=== PATIENT | male | born 1945 | race Caucasian/White ===

== ENCOUNTER → 2016-09-16 | Outpatient (CLI) | payer BC ==
[~2016-09-16] MED LIST: AMLO-110 PO; COEN150C PO; HOME1TAB18 PO; PRLSR20 PO; SLWMEC PO; ULT50X PO
[2016-09-16 12:50] LABS: HEMATOCRIT 45.4 % (42-52); MEAN CELL VOLUME 89.2 fL (80-100); MEAN CORPUSCULAR HEMOGLOBIN 30.5 pg (25-34); MEAN CORPUSCULAR HGB CONC 34.1 g/dl (32-36); MEAN PLATELET VOLUME 10.8 fL (7.4-10.4); PLATELET COUNT 194 K/uL (130-400); RED BLOOD COUNT 5.09 M/uL (4.7-6.1); WHITE BLOOD COUNT 5.33 K/uL (4.8-10.8)
[2016-09-16 12:56] LABS: BLOOD UREA NITROGEN 20 mg/dl (7-18); BUN/CREATININE RATIO 14.1 (10-20); CALCIUM 8.8 mg/dl (8.5-10.1); CARBON DIOXIDE 29 mmol/L (21-32); CHLORIDE 104 mmol/L (98-107); GLUCOSE 98 mg/dl (70-99); POTASSIUM 4.3 mmol/L (3.5-5.1); SODIUM 139 mmol/L (136-145)
[2016-09-16 12:59] LABS: CHOLESTEROL 258 mg/dl (0-200); CHOLESTEROL/HDL RATIO 5.9; HDL CHOLESTEROL 44 mg/dl; TRIGLYCERIDES 138 mg/dl (0-150); VERY LOW DENSITY LIPOPROT CALC 28 mg/dl
[2016-09-16 13:14] LABS: ESTIMATED AVERAGE GLUCOSE 126 mg/dl; HA1C FLAG Normal (Normal)
== END | disposition home or self-care (01) ==
LOC: C.LABSPEC 12:20
PROVIDERS: ATTEND Internal Medicine
DX: I10 Essential (primary) hypertension (principal); R73.9 Hyperglycemia, unspecified; E78.5 Hyperlipidemia, unspecified; D64.9 Anemia, unspecified

== ENCOUNTER 2016-11-05 10:53 | Inpatient (IN) | payer BC, OTHER ==
[2016-10-15 08:12] VITALS: BMI 33.0
--- NOTE | 2016-10-15 08:54 | PAT Medication Instructions ---
Service Date Oct 15, 2016. Current Home Medication List Amlodipine (Norvasc), 5 MG PO QAM Omeprazole (Prilosec), 40 MG PO QAM Medication Instructions For Your Scheduled Surgery - Take the following medications the morning of surgery with a sip of water: Amlodipine (Norvasc), 5 MG PO QAM Omeprazole (Prilosec), 40 MG PO QAM If you have any questions please call us at [phone] or [phone] ( [place]) or [phone]
--- NOTE | 2016-10-15 09:17 | DIAGNOSTIC IMAGING REPORT ---
CHEST 2 VIEWS ROUTINE CLINICAL HISTORY: PAT preoperative evaluation COMPARISON STUDY: 04/12/2013 FINDINGS: The bones soft tissues and hemidiaphragms are normal. The cardiomediastinal silhouette is normal. The lungs are clear. The pulmonary vasculature is normal. IMPRESSION: Negative chest. Electronically signed by: Sixto Zhang M.D. 10/15/2016 9:15 AM Dictated Date/Time: 10/15/2016 9:15 AM
[2016-10-15 10:06] LABS: BASO % 0.3 %; BASO ABS # 0.02 K/uL (0-0.2); COMPLETE YES; EOS % 1.9 %; HEMATOCRIT 47.5 % (42-52); IG% 0.5 %; LYMPH % 35.4 %; MEAN CELL VOLUME 88.5 fL (80-100); MEAN CORPUSCULAR HEMOGLOBIN 30.4 pg (25-34); MEAN CORPUSCULAR HGB CONC 34.3 g/dl (32-36); MEAN PLATELET VOLUME 10.6 fL (7.4-10.4); NEUT % 51.9 %; PLATELET COUNT 191 K/uL (130-400); RED BLOOD COUNT 5.37 M/uL (4.7-6.1)
[2016-10-15 10:08] LABS: URINE APPEARANCE CLEAR (CLEAR); URINE BILIRUBIN NEG (NEG); URINE COLOR YELLOW; URINE NITRITE NEG (NEG); URINE PH 6.5 (4.5-7.5); UROBILINOGEN NEG (NEG)
[2016-10-15 10:15] LABS: PROTHROMBIN TIME (PATIENT) 10.7 SECONDS (9.0-12.0)
[2016-10-15 10:24] LABS: MANUAL MICROSCOPIC REQUIRED? NO; REVIEW REQ? NO
--- NOTE | 2016-11-04 15:52 | HISTORY & PHYSICAL EXAMINATION ---
DATE OF ADMISSION: 11/05/2016 HISTORY AND PHYSICAL ADMISSION NOTE PREOPERATIVE DIAGNOSIS: Rotator cuff arthropathy of the left shoulder. HISTORY OF PRESENT ILLNESS: Joaquin is a very pleasant 71-year-old hand dominant male who has been having left shoulder pain for about a year. He does have a history of a left rotator cuff repair done by Dr. Tillman. About a year ago, he was working on his tractor and he went down over an 80 foot and back landed subsequently totalling his farm tractor. He remained in the character during the entire incident and since then he has been having increasing shoulder pain. 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 X-rays and clinical examination from the office do show signs of rotator cuff arthropathy of the left shoulder. After failing conservative treatment, he has elected to proceed with a reverse left shoulder arthroplasty. PAST MEDICAL HISTORY: Significant for arterial hypertension, treated for about 7 years; osteoarthritis and scarlet fever as a kid. PAST SURGICAL HISTORY: Significant for a left shoulder rotator cuff repair by Dr. Tillman in 2005 and appendectomy. In the past, a basal cell carcinoma removed from his right ear back in 2012; a left total hip arthroplasty in 2012 and a right knee wedge resection in 2008. ALLERGIES: INCLUDE HYDROCODONE, LISINOPRIL, AND OXYCODONE. SOCIAL HISTORY: He is with 2 sons. Denies any tobacco, alcohol or IV drug use. MEDICATIONS: Include Norvasc 5 mg daily, CoQ10 200 mg daily, and Prilosec 40 mg daily. REVIEW OF SYSTEMS: He complains of left shoulder pain and weakness. All other pertinent review of systems are negative. PHYSICAL EXAMINATION: GENERAL: He is awake, alert and oriented x3. He is in no apparent distress. He is very pleasant. HEENT: Pupils are equal, round and reactive to light. Extraocular motion intact. Oral mucosa is pink and moist. HEART: Regular rate per radial pulse. LUNGS: Lizzy symmetrically bilaterally with no audible breath sounds. ABDOMEN: Soft, nontender, nondistended. MUSCULOSKELETAL: On physical examination of the left shoulder, he has about 160 degrees of forward elevation and 140 degrees of abduction, but he has 3/5 muscle strength to full can testing and 4/5 with external rotation. Negative belly press test. He does have pain through range of motion. IMAGING Data: X-rays of the left shoulder do show superior migrated humeral head with articulation with the acromion. IMPRESSION: Cuff arthropathy of the left shoulder. PLAN: Will proceed with a Biomet comprehensive reverse left total shoulder arthroplasty. Postoperatively, he will be placed in an arm sling and kept overnight for postoperative medical evaluation.
[~2016-11-05] VITALS: Ht 170.2 cm; Wt 97.6 kg
[2016-11-05] VITALS (8 sets, daily range): BP systolic 113–138; BP diastolic 63–94; PULSE 69–82; TEMP 36.3–36.7; O2SAT 92–97; Ht 170.2 cm; Wt 97.6 kg
[~2016-11-05 10:53] MED LIST changes: +ACETAMINOPHEN 500 MG TAB PO SCH; +CEFAZOLIN 2000 MG/60 ML D5W 60 ML IV SCH; +FAMOTIDINE 20 MG TAB PO SCH; +GABAPENTIN 300 MG CAP PO SCH; +LACTATED RINGER'S 1000ML 1,000 ML IV SCH; +LACTATED RINGER'S 1000ML IV SCH; +ROPIVACAINE 0.5% 5 MG/ML 30 ML VIAL ONE; +ROPIVACAINE 5MG/ML 30 ML 150 MG, BUPIVACAINE/EPINEPHR 0.5% MPF 30 ML, KETOROLAC TROMETH... INFIL SCH; -SLWMEC PO; +TRANEXAMIC ACID INJ 1,000 MG in SODIUM CHLORIDE 0.9% 100ML 100 ML IV SCH; -ULT50X PO
--- NOTE | 2016-11-05 11:15 | History & Physical Bridge Note ---
H&P Re-Evaluation Bridge Note: I have examined the patient, reviewed the History & Physical and in the interval since the performance of the History & Physical I have noted the following changes of clinical significance: No changes noted
[2016-11-05] MEDS ORDERED: LIDOCAINE HCL 2% 2 ML VIAL (20MG/ML) ONE (11:44)
[2016-11-05] MEDS ORDERED: FENTANYL CITRATE INJ 50 MCG/1 ML 2 ML VIAL ONE ×2 (11:45→13:52)
[2016-11-05] MEDS ORDERED: MIDAZOLAM HCL 1 MG/ML 2ML VIAL ONE (11:45)
[2016-11-05] MEDS ORDERED: ROCURONIUM BROMIDE 10 MG/ML 5 ML VIAL ONE (11:45)
[2016-11-05] MEDS ORDERED: PROPOFOL IV EMULSION 10 MG/ML 20 ML VIAL IV ONE (11:45)
[2016-11-05] MEDS ORDERED: ORTHO JOINT ANESTHETIC ONE (11:53)
[2016-11-05] MEDS ORDERED: ATROPINE SULFATE 0.1 MG/ML 5ML SYR IV PRN (12:00)
[2016-11-05] MEDS ORDERED: ONDANSETRON INJ 2 MG/ML 2 ML VIAL IV PRN ×2 (12:00→14:15)
[2016-11-05] MEDS ORDERED: FENTANYL CITRATE INJ 50 MCG/1 ML 2 ML VIAL IV PRN (12:00)
[2016-11-05] MEDS ORDERED: EpHEDrine SULFATE INJ 50 MG/ML AMP IV PRN (12:00)
[2016-11-05] MEDS ORDERED: ONDANSETRON INJ 2 MG/ML 2 ML VIAL ONE (13:20)
[2016-11-05] MEDS ORDERED: EpHEDrine SULFATE 50MG/5ML SYR ONE (13:20)
[2016-11-05] MEDS ORDERED: LARYING-O-JET KIT (LTA) EXT ONE ×2 (13:20)
[2016-11-05] MEDS ORDERED: PHENYLEPHRINE 100MCG/ML 5ML SYR ONE (13:39)
[2016-11-05] MEDS ORDERED: BACITRACIN 50,000 UNITS IR ONE (14:10)
[2016-11-05] MEDS ORDERED: GLYCOPYRROLATE INJ 0.2 MG/ML VIAL ONE (14:11)
[2016-11-05] MEDS ORDERED: NEOSTIGMINE METHYLSULFATE 5 MG/5 ML SYR ONE (14:11)
[2016-11-05] MEDS ORDERED: METOCLOPRAMIDE HCL INJ 5 MG/ML 2 ML VIAL IV PRN (14:15)
[2016-11-05] MEDS ORDERED: MAGNESIUM HYDROXIDE SUSP 30 ML UDC PO PRN (14:15)
[2016-11-05] MEDS ORDERED: TRAMADOL HCL 50 MG TAB PO PRN (14:15)
[2016-11-05] MEDS ORDERED: SOD PHOSPHATE/SOD BIPHOSPHATE ENEMA 132 ML BTL PR PRN (14:15)
[2016-11-05] MEDS ORDERED: NALOXONE HCL 0.4 MG/1 ML VIAL/CARP IV PRN (14:15)
[2016-11-05] MEDS ORDERED: BISACODYL 10 MG SUPP PR PRN (14:15)
[2016-11-05] MEDS ORDERED: HYDROmorphone INJ 1 MG/ML SYR IV PRN (14:15)
[2016-11-05] MEDS ORDERED: HYDROmorphone HCL 2 MG TAB PO PRN (14:15)
--- NOTE | 2016-11-05 14:15 | [facility] Post Operative Brief Note ---
Immediate Operative Summary Operative Date November 05, 2016. Pre-Operative Diagnosis Rotator cuff arthropathy of the left shoulder Post-Operative Diagnosis Rotator cuff arthropathy of the left shoulder Procedure(s) Performed Left Reverse Total Shoulder Arthroplasty Surgeon Dr. Solis [employer] Manager Surgeon(s) Iker Starks Estimated Blood Loss 300 ML Findings as above Specimens Permanent Specimen A: Left Humeral Head Complication(s) None Disposition Recovery Room / PACU
--- NOTE | 2016-11-05 15:13 | DIAGNOSTIC IMAGING REPORT ---
LEFT SHOULDER 2 VIEWS CLINICAL HISTORY: Postoperative examination. FINDINGS: 2 portable views of the left shoulder are obtained. The skeletal structures are osteopenic. A left shoulder arthroplasty is in near anatomic alignment. No acute fracture is seen. There are expected postoperative changes overlying the left shoulder including subcutaneous gas, soft tissue swelling, and a surgical drain. IMPRESSION: Expected postoperative findings status post left shoulder arthroplasty. No fracture is seen. Electronically signed by: Alan Post M.D. 11/05/2016 3:11 PM Dictated Date/Time: 11/05/2016 2:59 PM
--- NOTE | 2016-11-05 15:41 | Anesthesiology Progress Note ---
Anesthesia Post Op Note Date & Time November 05, 2016 at 15:41 Vital Signs Pain Intensity: 0 Vital Signs Past 12 Hours Date Time Temp Pulse Resp B/P Pulse Ox O2 Delivery O2 Flow Rate FiO2 11/05/16 15:15 36.5 76 16 122/75 97 Nasal Cannula 3 11/05/16 15:00 75 16 132/78 97 Nasal Cannula 3 11/05/16 14:50 77 16 118/81 98 Nasal Cannula 3 11/05/16 14:40 76 16 121/79 98 Mask 10 11/05/16 14:31 36.8 80 16 124/80 96 Mask 10 11/05/16 11:15 36.7 71 18 138/94 96 Room Air Notes Mental Status: alert / awake / arousable, participated in evaluation Pt Amnestic to Procedure: Yes Nausea / Vomiting: adequately controlled Pain: adequately controlled Airway Patency, RR, SpO2: stable & adequate BP & HR: stable & adequate Hydration State: stable & adequate Anesthetic Complications: no major complications apparent
--- NOTE | 2016-11-05 15:42 | OPERATIVE REPORT ---
DATE OF OPERATION: 11/05/2016 PREOPERATIVE DIAGNOSIS: Rotator cuff arthropathy of the left shoulder. POSTOPERATIVE DIAGNOSIS: Same. PROCEDURE: Reverse left total shoulder arthroplasty. SURGEON: Dr. Dewayne Solis. ASSISTANT REFINERY OPERATOR: Iker Long PA-C; whose assistance was necessary for retraction and helping positioning the arm. ANESTHESIA: General with a left interscalene nerve block. COMPLICATIONS: None. CONDITION: Stable to PACU. INDICATIONS: Joaquin is a very pleasant 71-year-old male who is very active. He came to my office with chronic left shoulder pain and weakness. X-rays and clinical examination were diagnostic for rotator cuff arthropathy of the left shoulder. After failing extensive conservative treatment, he elected to undergo a reverse shoulder arthroplasty. DESCRIPTION OF PROCEDURE: On 11/05/2016, he arrived at [facility] for the above procedure. He was seen in the preoperative holding area and the operative extremity was identified and signed. He was given a preoperative antibiotic and left interscalene nerve block. He was taken back to the operating room, laid on the table in supine position and put under general anesthesia. He was then put into the beachchair position. Left shoulder was prepped and draped in sterile fashion. Time-out was done and patient and operative extremity was properly identified. A deltopectoral approach was used. Dissection was taken down through the fascia and the anterior shoulder was exposed. There was a tear of the entire supraspinatus, most of the infraspinatus and entire subscapularis. The long head of the biceps tendon was absent. The proximal humerus was easily dislocated out of the joint. A canal finding reamer was sent down to the center of the humeral canal. Sequential reaming up to a size 9 reamer was done. Off that reamer, a proximal humeral resection guide was placed and the proximal humerus was resected at 20 degrees of retroversion and 135 degrees of inclination. The head was removed and the glenoid was exposed. Time was spent doing a complete circumferential capsular and labral release. A guide was placed on the inferior aspect of the glenoid and a guide pin was placed in 10 degrees of inclination. The 25 mm mini base plate was then reamed and impacted into place. A single 45 mm central screw was placed and got excellent purchase. Superior and inferior peripheral locking screws were then placed. A 36 mm eccentric glenosphere was then impacted into place. The proximal humerus was exposed. Sequential broaching up to a size 9 broach was done. Off that broach, a standard humeral tray was used. The shoulder was reduced, brought through a full range of motion and felt to be stable. The shoulder was dislocated and the trials were removed and the final size 9 press fit stem was impacted into place. The standard humeral bearing was snapped into the humeral tray and the ring lock mechanism was engaged. The humeral tray was then placed on the humeral stem. The shoulder was reduced, brought through a full range of motion and felt to be stable. Surrounding soft tissues were then injected with 100 mL of an orthopedic pain control cocktail. The entire joint was then irrigated with 3 liters of normal saline solution with bacitracin. A drain was placed. Hemostasis was controlled. The skin was then closed with 2-0 Vicryl, 3-0 V-Loc suture and Prineo dressing. He was placed in a soft dressing and in a left arm sling. He was then extubated, transferred to [facility] and taken to the postanesthesia care unit in stable condition. He tolerated the procedure well. IMPLANTS USED: I used a Biomet comprehensive reverse left total shoulder arthroplasty system with a size 25 mm mini baseplate, a 36 mm eccentric standard glenosphere and a size 9 press fit humeral stem and a standard humeral tray and bearing. No cement was used during the case. I attest to the content of the Intraoperative Record and any orders documented therein. Any exceptio ns are noted below.
[2016-11-05] MEDS: D5W AND 1/2NSS + 20MEQ KCL 1,000 ML IV SCH (16:36)
[2016-11-05] MEDS: KETOROLAC TROMETHAMINE 15 MG/ML VIAL IV. SCH ×2 (17:54→23:08)
[2016-11-05] MEDS: CEFAZOLIN IV 2,000 MG in DEXTROSE 5% 50ML 50 ML IV SCH (19:33)
[2016-11-05] MEDS ORDERED: SENNA 8.6 MG TAB PO SCH (21:00)
[2016-11-05] MEDS: DOCUSATE SODIUM 100 MG CAP PO SCH (21:21)
[2016-11-05] MEDS: ACETAMINOPHEN IV 1,000 MG in EMPTY BAG 0 ML IV SCH (21:26)
[2016-11-06] MEDS: D5W AND 1/2NSS + 20MEQ KCL 1,000 ML IV SCH (02:22)
[2016-11-06] MEDS: CEFAZOLIN IV 2,000 MG in DEXTROSE 5% 50ML 50 ML IV SCH (03:16)
[2016-11-06 03:25] VITALS: BP 114/71; PULSE 62; TEMP 36.6; O2SAT 91
[2016-11-06] MEDS: ACETAMINOPHEN IV 1,000 MG in EMPTY BAG 0 ML IV SCH (05:26)
[2016-11-06] MEDS: KETOROLAC TROMETHAMINE 15 MG/ML VIAL IV. SCH (05:26)
[2016-11-06 06:29] LABS: HEMATOCRIT 37.7 % (42-52); MEAN CELL VOLUME 90.8 fL (80-100); MEAN CORPUSCULAR HEMOGLOBIN 30.4 pg (25-34); MEAN CORPUSCULAR HGB CONC 33.4 g/dl (32-36); MEAN PLATELET VOLUME 10.5 fL (7.4-10.4); PLATELET COUNT 153 K/uL (130-400); RED BLOOD COUNT 4.15 M/uL (4.7-6.1); WHITE BLOOD COUNT 8.48 K/uL (4.8-10.8)
[2016-11-06 06:59] LABS: BUN/CREATININE RATIO 9.5 (10-20); CALCIUM 8.1 mg/dl (8.5-10.1); CREATININE 1.4 mg/dl (0.60-1.40); POTASSIUM 4.3 mmol/L (3.5-5.1)
[2016-11-06 07:45] VITALS: BP 121/78; PULSE 62; TEMP 36.7; O2SAT 94
[2016-11-06] MEDS ORDERED: ULT50X PO (08:16)
--- NOTE | 2016-11-06 08:17 | Discharge Instructions ---
Discharge Instructions Date of Service November 06, 2016. Admission Reason for Admission: Left Shoulder Full Thickness Rtc Tear, Inflammatio Discharge Discharge Diagnosis / Problem: Left Reverse Total Shoulder Discharge Goals Goal(s): Decrease discomfort, Improve function Activity Recommendations Activity Limitations: as noted below Shower/Bathe: may shower/bathe in 3 days . Instructions / Follow-Up Instructions / Follow-Up Activity and Therapy Recommendations: * Wear your sling for 3 weeks, unless otherwise instructed. You may remove your sling to shower and to dress, but otherwise, you should be in your sling at all times, including while sleeping * The shoulder replacement is very stable and you can use your hand while in the sling * Physical Therapy should start about 3-5 days from your day of surgery. Therapy will last about 8-12 weeks * You were shown a series of exercises in the hospital. Do these exercises daily including the exercises you were shown in physical therapy. Medications: * Narcotic You will likely be sent home from the hospital with a prescription for the narcotic pain medication that worked best throughout your stay. * Other medications may be prescribed for specific circumstances. If you have any questions, please call the office at . * Resume previous home medications unless otherwise instructed Dressing Care: You will likely have a Prineo dressing covering your incision. This looks like a glued on clear mesh dressing. Do not remove this dressing until you follow- up in my office in 2-3 weeks. Its pretty hard to peel it off. You may leave the Prineo dressing uncovered or cover it if it is draining a little bit. No further dressing care is required Showering: You may shower 3 days from the day of surgery. Leave the Prineo dressing intact and let the soapy shower water run over it. Do not scrub or soak the dressing or the incision. Things To Watch For: * Drainage from the incision site that occurs more than one week after your surgery. * Increased redness at the incision site. * Fever above 102 degrees Fahrenheit. * Unusual chest pain or shortness of breath. * Call [facility] at with any of the above problems Follow-Up Visit: Follow-up with Dr. Solis 2-3 weeks after your day of surgery. An appointment was probably scheduled when you signed-up for surgery in the office. If you have any questions call Office Instructions: More detailed instructions as well as Frequently Asked Questions were provided in a folder by our office when you signed-up for surgery. Please review these instructions when you get home. If you have any further questions or concerns, please feel free to call the office at [phone] Current Hospital Diet Patient's current hospital diet: Regular Diet Discharge Diet Recommended Diet: Regular Diet Procedures Procedures Performed: Left Reverse Total Shoulder Arthroplasty Pending Studies Studies pending at discharge: no Laboratory Results Hemoglobin A1c Test 09/16/16 10:40 Range/Units Estimated Average Glucose 126 mg/dl Hemoglobin A1c 6.0 H 4.5-5.6 % Lipid Panel Test 09/16/16 10:40 Range/Units Triglycerides Level 138 0-150 mg/dl Cholesterol Level 258 H 0-200 mg/dl HDL Cholesterol 44 mg/dl LDL Cholesterol Direct 174 mg/dl Cholesterol/HDL Ratio 5.9 LDL Cholesterol, Calculated mg/dl Medical Emergencies . Who to Call and When: Medical Emergencies: If at any time you feel your situation is an emergency, please call 911 immediately. . Non-Emergent Contact Non-Emergency issues call your: Surgeon Call Non-Emergent contact if: wound has increased drainage, wound has increased redness . "Provider Documentation" section prepared by Dewayne Solis. . VTE Core Measure Inpt VTE Proph given/why not?: Treatment not indicated
[2016-11-06] MEDS: DOCUSATE SODIUM 100 MG CAP PO SCH (08:31)
--- NOTE | 2016-11-06 08:49 | PROGRESS NOTE ---
DATE: 11/06/2016 DATE: 11/06/2016. CHIEF COMPLAINT: Status post reverse left total shoulder arthroplasty postop day #1. PROGRESS: Joaquin was seen and examined at bedside today. Overall, he is doing well. He says he really has no pain in the left shoulder. He was able to get some sleep last night and has no complaints. PHYSICAL EXAMINATION: RIGHT SHOULDER: The dressing is clean and dry and the drain is to suction. His radial, median and ulnar nerves were checked and intact at his wrist. His axillary nerve was not checked yet. He is wearing his sling as instructed. LABORATORY DATA: He has an H\T\H of 12.6 and 37.7. His glucose is 156. His vital signs are stable on room air. He is voiding on his own. X-rays postoperatively of the left shoulder show the prosthesis to be in anatomic alignment without any evidence of fracture, dislocation or loosening. IMPRESSION: Status post reverse left shoulder arthroplasty postop day #1. PLAN: At this point, he is doing very well. He will be seen by physical therapy today for hand, wrist, elbow and pendulum exercises. The nursing staff can change the dressing and pull the drain and discharge him to home later this morning.
[2016-11-06 08:53] VITALS: BP 121/78; PULSE 62; TEMP 36.7; O2SAT 94
[2016-11-06] MEDS ORDERED: PANTOprazole SOD 40 MG TAB PO SCH (09:00)
[2016-11-06] MEDS ORDERED: MULTIVITAMIN TAB PO SCH (09:00)
[2016-11-06] MEDS ORDERED: AMLODIPINE BESYLATE 5 MG TAB PO SCH (09:00)
--- NOTE | 2016-11-06 09:13 | DISCHARGE SUMMARY ---
CHIEF COMPLAINT: Rotator cuff arthropathy of the left shoulder. PROCEDURE: Left reverse total shoulder arthroplasty on 11/05/[address] Dewayne Solis. DISCHARGE INSTRUCTIONS: 1. Tramadol 50 mg every 4 hours as needed for pain. 2. Norvasc 5 mg daily. 3. CoQ10 200 mg daily. 4. Prilosec 40 mg daily. 5. Left arm sling for 3 weeks. 6. Start physical therapy this week. 7. Follow up with Dr. Solis in 2 weeks. 8. Call the office of Dr. Solis with any questions or concerns. HOSPITAL COURSE: Joaquin is a pleasant 71-year-old male who presented to my office with chronic left shoulder pain. X-rays and clinical examination were diagnostic for rotator cuff arthropathy of the left shoulder. After failing years of conservative treatment, he elected to undergo reverse shoulder arthroplasty. On 11/05/2016, he arrived at [facility] and underwent a reverse left shoulder replacement without complications. He had a general anesthetic and a left interscalene nerve block. Postoperatively, he was discharged to general orthopedic floor. His hospital course was uneventful. On postop day #1, his H\T\H was stable at 12.6 and 37.5. His glucose was 156. He was not having much pain in the shoulder. He was able to participate with physical therapy and do hand, wrist and elbow exercises. The nursing staff pulled the drain and changed the dressing, and he was subsequently discharged to home on oral pain medications and the above instructions.
[2016-11-06 09:28] VITALS: O2SAT 94
[2016-11-19] MEDS ORDERED: SLWMEC PO (11:51)
[2017-04-21] MEDS ORDERED: COEN100C7 PO (15:47)
[2017-04-21] MEDS ORDERED: NTRGSL/4 UT (15:47)
[2017-04-21] MEDS ORDERED: ATOR-26 PO (15:47)
[2017-04-21] MEDS ORDERED: METO50TA7 PO (15:47)
[2017-04-21] MEDS ORDERED: DOXY100C76 PO (15:48)
[2017-04-28] MEDS ORDERED: ACET-1256 PO (15:27)
[2017-04-28] MEDS ORDERED: ASPI81TA28 PO (15:27)
== END 2016-11-06 10:10 | disposition home or self-care (01) | DRG 483 ==
LOC: ENRESERVTM → ENRESERVDT → C.ACU 10:53 → C.3E 12:15 → UNDOADMIN 16:03
PROVIDERS: ADMIT Orthopaedic Surgery Sports Medicine; ATTEND Orthopaedic Surgery
PROC: 0RRK00Z Replacement of Left Shoulder Joint with Reverse Ball and Socket Synthetic Substitute, Open Approach (ICD-10-PCS; principal; 2016-11-05 13:40)
DX: M12.812 Other specific arthropathies, not elsewhere classified, left shoulder (principal); M75.102 Unspecified rotator cuff tear or rupture of left shoulder, not specified as traumatic; I10 Essential (primary) hypertension; E66.9 Obesity, unspecified; Z68.33 Body mass index [BMI] 33.0-33.9, adult; Z87.891 Personal history of nicotine dependence; Z86.19 Personal history of other infectious and parasitic diseases; Z79.899 Other long term (current) drug therapy

== ENCOUNTER → 2016-11-10 | Day surgery (SDC) | payer BC, OTHER ==
[2016-10-28 10:58] VITALS: Ht 170.2 cm; Wt 97.7 kg
[~2016-11-10] VITALS: Ht 170.2 cm; Wt 97.7 kg
[~2016-11-10] MED LIST changes: +500ML BSS 0.3ML EPI 1:1000PF IRRIG ONE; +ACET-1256 PO; +ACETAMINOPHEN 325 MG TAB PO PRN; -ACETAMINOPHEN 500 MG TAB PO SCH; +AMVISC PLUS 0.8ML SYRINGE INT OCU ONE; +ASPI81TA28 PO; +ATOR-26 PO; +ATROPINE SULFATE 0.1 MG/ML 5ML SYR IV PRN; +BSS FLUSH ONE; -CEFAZOLIN 2000 MG/60 ML D5W 60 ML IV SCH; +COEN100C7 PO; +DOXY100C76 PO; +ENDOCOAT 0.85ML SYRINGE INT OCU ONE; +EpHEDrine SULFATE INJ 50 MG/ML AMP IV PRN; +EpINEphrine INJ 1MG/ML AMP 1 MG/ML AMP ONE; -FAMOTIDINE 20 MG TAB PO SCH; -GABAPENTIN 300 MG CAP PO SCH; -LACTATED RINGER'S 1000ML 1,000 ML IV SCH; +LACTATED RINGER'S 1000ML 500 ML IV SCH; -LACTATED RINGER'S 1000ML IV SCH; +LIDOCAINE 4% OP SOLN DROP CHARGE ONE; +LIDOCAINE 4% OP SOLN DROP CHARGE OPR SCH; +LIDOCAINE HCL 1% MPF 2 ML VIAL ONE; +METO50TA7 PO; +MIDAZOLAM HCL 1 MG/ML 2ML VIAL ONE; +MIX: 4ML BSS 1ML EPI 1:1000 PF TOP ONE; +MOXIFLOXACIN OPH SOLN PER DROP CHARGE ONE; +NTRGSL/4 UT; +POVIDONE-IODINE OP SOLN 30 ML BTL ONE; +PROPARACAINE 0.5% OP SOLN PER DROP CHARGE OPR SCH; -ROPIVACAINE 0.5% 5 MG/ML 30 ML VIAL ONE; -ROPIVACAINE 5MG/ML 30 ML 150 MG, BUPIVACAINE/EPINEPHR 0.5% MPF 30 ML, KETOROLAC TROMETH... INFIL SCH; +SLWMEC PO; +TOBRAMYCIN/DEXAMETHASONE OPH OINT PER APPLN CHARGE ONE; -TRANEXAMIC ACID INJ 1,000 MG in SODIUM CHLORIDE 0.9% 100ML 100 ML IV SCH; +ULT50X PO
[2016-11-10] MEDS: PHENYLEPHRINE HCL 2.5% OP SOLN PER DROP CHARGE OPR SCH ×3 (06:37→06:47)
[2016-11-10] MEDS: TROPICAMIDE 1% OP SOLN PER DROP CHARGE OPR SCH ×3 (06:38→06:48)
[2016-11-10] MEDS: CYCLOPENTOLATE HCL 1% OP SOLN PER DROP CHARGE OPR SCH ×3 (06:39→06:51)
[2016-11-10] MEDS: MOXIFLOXACIN OPH SOLN PER DROP CHARGE OPR SCH ×3 (06:40→06:52)
--- NOTE | 2016-11-10 06:43 | History & Physical Bridge - [place] ---
H&P Re-Evaluation Bridge Note: I have examined the patient, reviewed the History & Physical and in the interval since the performance of the History & Physical I have noted the following changes of clinical significance: No changes noted. Right eye cataract surgery.
--- NOTE | 2016-11-10 07:29 | [facility] Post Operative Brief Note ---
Immediate Operative Summary Operative Date November 10, 2016. Pre-Operative Diagnosis Right eye cataract Post-Operative Diagnosis Same as preop Procedure(s) Performed Right Cataract Phacoemulsification With Intraocular Lens Implant Surgeon Dr. Patiño Contract Administration Specialist Surgeon(s) None Estimated Blood Loss 0 mL Findings right cataract Specimens None Complication(s) None Disposition
--- NOTE | 2016-11-10 07:32 | [facility] Operative Report ---
Operative Report Date of Service November 10, 2016. Operative Report Phaco with monofocal IOL DATE OF OPERATION: 11/10/16 PREOPERATIVE DIAGNOSIS: Senile nuclear cataract, right eye POSTOPERATIVE DIAGNOSIS: Senile nuclear cataract, right eye PROCEDURE PERFORMED: Phacoemulsification with intraocular lens implantation, right eye SURGEON: Dr. Jan Patiño ANESTHESIA: Topical with 1% intracameral lidocaine and monitored anesthesia care COMPLICATIONS: None DESCRIPTION OF PROCEDURE: After positively identifying the patient both verbally and by wristband in the preoperative area, the right eye was marked as the operative eye. The patient was then brought back to the operating room by the anesthesia and nursing staff where they were given a drop of Lidocaine and betadine into the operative eye. They were then sterilely prepped and draped in the standard fashion typical for ophthalmic surgery. Steri-strips were placed along the upper eyelids to keep the lashes back, and a lid speculum was placed into the operative eye. At this point, a documented time out was performed with members of the ophthalmology, nursing, and anesthesia staffs all agreeing upon the correct patient, correct location for surgery, correct procedure, and correct type and power of intraocular lens to be implanted. The microscope was then swung into position. First, a paracentesis wound was made using a sideport blade. Then, in sequence, 1% preservative-free lidocaine followed by Endocoat viscoelastic was injected into the anterior chamber. Next , the main incision was made with a keratome blade in triplanar fashion. A Malyugin ring was inserted due to poor pupil dilation. A sharp cystotome was introduced into the eye and used to create a tear in the anterior capsule, which was directed into a continuous curvilinear capsulorrhexis using Utrata forceps. Hydrodissection was then performed with BSS on a flat-tip cannula. Next, the phacoemulsification handpiece was introduced into the eye and used to remove the nucleus in a [id number] fashion. This was done without complication and then the irrigation-aspiration handpiece was introduced into the eye and used to remove all remaining cortical and epinuclear material. Amvisc was then injected into the anterior chamber as well as into the capsular bag and using the lens injector system, an MX60 23.5 D lens, serial number [id number], and expiration date 06/2019 was injected into the capsular bag and rotated into the correct position. The Malyugin ring was removed, and in this process some iris tissue was very friable and tore nasally along the pupil margin. Fred scissors were used to create an opening in the superior bulbar conjunctiva due to fluid buildup because of pannus at the site of the paracentesis. Next, the irrigation-aspiration handpiece was used to remove all remaining Amvisc. BSS was used to hydrate the main wound, and then BSS was injected into the paracentesis site to reach physiologic pressure and then the main wound was checked and found to be watertight. The patient was given drops of Vigamox and Tobradex ointment into the operative eye, and then the surrounding area was cleaned and dried. A clear plastic shield was placed over the eye and the patient was then sat up and taken from the operating room by the anesthesia staff having tolerated the procedure well and suffering no complications. DISPOSITION: The patient was returned to the recovery room in stable condition. I attest to the content of the Intraoperative Record and any orders documented therein. Any exceptions are noted below.
--- NOTE | 2016-11-10 07:33 | Discharge Instructions-SurgCtr ---
Discharge Instructions Date of Service November 10, 2016. Visit Reason for Visit: Cataract Right Eye Discharge Discharge Diagnosis / Problem: right cataract Discharge Goals Goal(s): Decrease discomfort, Improve function Activity Recommendations Activity Limitations: as noted below Anesthesia . Post Anesthesia Instructions: If you have had General Anesthesia or IV Sedation: * Do not drive today. * Resume driving when surgeon permits. * Do not make important decisions or sign legal documents today. * Call surgeon for: 1. Temperature elevations greater than 101 degrees F. 2. Uncontrollable pain. 3. Excessive bleeding. 4. Persistent nausea and vomiting. 5. Medication intolerance (nausea, vomiting or rash). * For nausea and vomiting use only clear liquids such as: tea, soda, bouillon until nausea subsides, then gradually increase diet as tolerated. * If you have any concerns or questions, call your surgeon's office. If physician is unavailable and it is an emergency, call 911 or go to the nearest emergency room. . Instructions / Follow-Up Instructions / Follow-Up ACTIVITY RECOMMENDATIONS: * Light activities. * You may walk outside, read, watch television. * You may notice redness on the white part of the eye and some blurry vision - this is normal. MEDICATIONS: Resume previous medications unless instructed otherwise by your surgeon. Start all eye drops at 9:30 am today: * Eye drops (today): Prednisone - one drop in operative eye every 2 hours while awake Ofloxacin - one drop in operative eye every 2 hours while awake SPECIAL CARE INSTRUCTIONS: * Tape plastic shield over eye to sleep at night. Call your doctor at with any concerns or problems. FOLLOW UP VISIT: Follow-up with Dr Patiño at [place] office as scheduled. Diet Recommendations Home Diet: no limitations Procedures Procedures Performed: Right Cataract Phacoemulsification With Intraocular Lens Implant Pending Studies Studies pending at discharge: no Medical Emergencies . Who to Call and When: Medical Emergencies: If at any time you feel your situation is an emergency, please call 911 immediately. . Non-Emergent Contact Non-Emergency issues call your: Surgeon . . "Provider Documentation" section prepared by Jan Patiño. .
[2016-11-10 07:54] VITALS: BP 146/91; PULSE 87; O2SAT 96
--- NOTE | 2016-11-10 08:03 | Anesthesia Progress Nt - [facility] ---
Anesthesia Post Op Note Date & Time November 10, 2016 at 08:03 Vital Signs Pain Intensity: 0 Vital Signs Past 12 Hours Date Time Temp Pulse Resp B/P Pulse Ox O2 Delivery O2 Flow Rate FiO2 11/10/16 07:54 87 146/91 96 Room Air 11/10/16 07:33 37.3 86 16 144/87 95 Room Air 11/10/16 06:29 37 91 16 138/89 94 Room Air Notes Mental Status: alert / awake / arousable, participated in evaluation Pt Amnestic to Procedure: Yes Nausea / Vomiting: adequately controlled Pain: adequately controlled Airway Patency, RR, SpO2: stable & adequate BP & HR: stable & adequate Hydration State: stable & adequate Anesthetic Complications: no major complications apparent
--- NOTE | 2016-11-10 08:33 | Anesthesia Progress Nt - [facility] ---
Anesthesia Post Op Note Date & Time November 10, 2016 at 08:34 Vital Signs Pain Intensity: 0 Vital Signs Past 12 Hours Date Time Temp Pulse Resp B/P Pulse Ox O2 Delivery O2 Flow Rate FiO2 11/10/16 07:54 87 146/91 96 Room Air 11/10/16 07:33 37.3 86 16 144/87 95 Room Air 11/10/16 06:29 37 91 16 138/89 94 Room Air Notes Mental Status: alert / awake / arousable, participated in evaluation Pt Amnestic to Procedure: Yes Nausea / Vomiting: adequately controlled Pain: adequately controlled Airway Patency, RR, SpO2: stable & adequate BP & HR: stable & adequate Hydration State: stable & adequate Anesthetic Complications: no major complications apparent
== END | disposition home or self-care (01) ==
LOC: X.SURG 06:01
PROVIDERS: ATTEND Ophthalmology
DX: H25.11 Age-related nuclear cataract, right eye (principal); I10 Essential (primary) hypertension; K21.9 Gastro-esophageal reflux disease without esophagitis; Z88.5 Allergy status to narcotic agent; Z98.890 Other specified postprocedural states; Z96.649 Presence of unspecified artificial hip joint; Z96.659 Presence of unspecified artificial knee joint; Z85.828 Personal history of other malignant neoplasm of skin; Z90.89 Acquired absence of other organs; Z68.34 Body mass index [BMI] 34.0-34.9, adult

== ENCOUNTER → 2016-11-24 | Day surgery (SDC) | payer BC ==
[2016-11-19 11:54] VITALS: Ht 170.2 cm; Wt 97.7 kg
[~2016-11-24] VITALS: Ht 170.2 cm; Wt 97.7 kg
[~2016-11-24] MED LIST changes: -LIDOCAINE 4% OP SOLN DROP CHARGE ONE; +LIDOCAINE 4% OP SOLN DROP CHARGE OPL SCH; -LIDOCAINE 4% OP SOLN DROP CHARGE OPR SCH; +PROPARACAINE 0.5% OP SOLN PER DROP CHARGE OPL SCH; -PROPARACAINE 0.5% OP SOLN PER DROP CHARGE OPR SCH; -ULT50X PO
--- NOTE | 2016-11-24 06:35 | History & Physical Bridge - [facility] ---
H&P Re-Evaluation Bridge Note: I have examined the patient, reviewed the History & Physical and in the interval since the performance of the History & Physical I have noted the following changes of clinical significance: No changes noted. Left eye cataract surgery.
[2016-11-24] MEDS: PHENYLEPHRINE HCL 2.5% OP SOLN PER DROP CHARGE OPL SCH ×3 (06:43→06:53)
[2016-11-24] MEDS: TROPICAMIDE 1% OP SOLN PER DROP CHARGE OPL SCH ×3 (06:44→06:54)
[2016-11-24] MEDS: CYCLOPENTOLATE HCL 1% OP SOLN PER DROP CHARGE OPL SCH ×3 (06:45→06:55)
[2016-11-24] MEDS: MOXIFLOXACIN OPH SOLN PER DROP CHARGE OPL SCH ×3 (06:46→06:56)
[2016-11-24] MEDS: LIDOCAINE 4% OP SOLN DROP CHARGE ONE ×2 (06:57→07:01)
--- NOTE | 2016-11-24 07:32 | [facility] Post Operative Brief Note ---
Immediate Operative Summary Operative Date November 24, 2016. Pre-Operative Diagnosis Cataract Left Eye Post-Operative Diagnosis Same Procedure(s) Performed Left Cataract Phacoemulsification With Intraocular Lens implant Surgeon Dr. Patiño Strip Presser Surgeon(s) None Estimated Blood Loss 0 Findings left cataract Specimens None Complication(s) None Disposition
--- NOTE | 2016-11-24 07:33 | [facility] Operative Report ---
Operative Report Date of Service November 24, 2016. Operative Report Phaco with monofocal IOL DATE OF OPERATION: 11/24/16 PREOPERATIVE DIAGNOSIS: Senile nuclear cataract, left eye POSTOPERATIVE DIAGNOSIS: Senile nuclear cataract, left eye PROCEDURE PERFORMED: Phacoemulsification with intraocular lens implantation, left eye SURGEON: Dr. Jan Patiño ANESTHESIA: Topical with 1% intracameral lidocaine and monitored anesthesia care COMPLICATIONS: None DESCRIPTION OF PROCEDURE: After positively identifying the patient both verbally and by wristband in the preoperative area, the left eye was marked as the operative eye. The patient was then brought back to the operating room by the anesthesia and nursing staff where they were given a drop of Lidocaine and betadine into the operative eye. They were then sterilely prepped and draped in the standard fashion typical for ophthalmic surgery. Steri-strips were placed along the upper eyelids to keep the lashes back, and a lid speculum was placed into the operative eye. At this point, a documented time out was performed with members of the ophthalmology, nursing, and anesthesia staffs all agreeing upon the correct patient, correct location for surgery, correct procedure, and correct type and power of intraocular lens to be implanted. The microscope was then swung into position. First, a paracentesis wound was made using a sideport blade. Then, in sequence, 1% preservative-free lidocaine followed by Endocoat viscoelastic was injected into the anterior chamber. Next , the main incision was made with a keratome blade in triplanar fashion. A Malyugin ring was inserted due to poor dilation. A sharp cystotome was introduced into the eye and used to create a tear in the anterior capsule, which was directed into a continuous curvilinear capsulorrhexis using Utrata forceps. Hydrodissection was then performed with BSS on a flat-tip cannula. Next, the phacoemulsification handpiece was introduced into the eye and used to remove the nucleus in a [id number] fashion. This was done without complication and then the irrigation-aspiration handpiece was introduced into the eye and used to remove all remaining cortical and epinuclear material. Amvisc was then injected into the anterior chamber as well as into the capsular bag and using the lens injector system, an MX60 23.0 D lens, serial number [id number], and expiration date 07/2019 was injected into the capsular bag and rotated into the correct position. The Malyugin ring was removed. Next, the irrigation-aspiration handpiece was used to remove all remaining Amvisc. BSS was used to hydrate the main wound, and then BSS was injected into the paracentesis site to reach physiologic pressure and then the main wound was checked and found to be watertight. The patient was given drops of Vigamox and Tobradex ointment into the operative eye, and then the surrounding area was cleaned and dried. A clear plastic shield was placed over the eye and the patient was then sat up and taken from the operating room by the anesthesia staff having tolerated the procedure well and suffering no complications. DISPOSITION: The patient was returned to the recovery room in stable condition. I attest to the content of the Intraoperative Record and any orders documented therein. Any exceptions are noted below.
--- NOTE | 2016-11-24 07:34 | Discharge Instructions-SurgCtr ---
Discharge Instructions Date of Service November 24, 2016. Visit Reason for Visit: Left Cataract Discharge Discharge Diagnosis / Problem: left cataract Discharge Goals Goal(s): Decrease discomfort, Improve function Activity Recommendations Activity Limitations: as noted below Anesthesia . Post Anesthesia Instructions: If you have had General Anesthesia or IV Sedation: * Do not drive today. * Resume driving when surgeon permits. * Do not make important decisions or sign legal documents today. * Call surgeon for: 1. Temperature elevations greater than 101 degrees F. 2. Uncontrollable pain. 3. Excessive bleeding. 4. Persistent nausea and vomiting. 5. Medication intolerance (nausea, vomiting or rash). * For nausea and vomiting use only clear liquids such as: tea, soda, bouillon until nausea subsides, then gradually increase diet as tolerated. * If you have any concerns or questions, call your surgeon's office. If physician is unavailable and it is an emergency, call 911 or go to the nearest emergency room. . Instructions / Follow-Up Instructions / Follow-Up ACTIVITY RECOMMENDATIONS: * Light activities. * You may walk outside, read, watch television. * You may notice redness on the white part of the eye and some blurry vision - this is normal. MEDICATIONS: Resume previous medications unless instructed otherwise by your surgeon. Start all eye drops at 9:30 am today: * Eye drops (today): Prednisone - one drop in operative eye every 2 hours while awake Ofloxacin - one drop in operative eye every 2 hours while awake Ilevro - one drop in operative eye daily SPECIAL CARE INSTRUCTIONS: * Tape plastic shield over eye to sleep at night. Call your doctor at with any concerns or problems. FOLLOW UP VISIT: Follow-up with Dr Patiño at [place] office as scheduled. Diet Recommendations Home Diet: no limitations Procedures Procedures Performed: Left Cataract Phacoemulsification With Intraocular Lens implant Pending Studies Studies pending at discharge: no Medical Emergencies . Who to Call and When: Medical Emergencies: If at any time you feel your situation is an emergency, please call 911 immediately. . Non-Emergent Contact Non-Emergency issues call your: Surgeon . . "Provider Documentation" section prepared by Jan Patiño. .
[2016-11-24 07:36] VITALS: TEMP 36.7
[2016-11-24 07:57] VITALS: BP 139/86; PULSE 77; O2SAT 94
--- NOTE | 2016-11-24 08:13 | Anesthesia Progress Nt - [facility] ---
Anesthesia Post Op Note Date & Time November 24, 2016 at 08:12 Vital Signs Pain Intensity: 0 Vital Signs Past 12 Hours Date Time Temp Pulse Resp B/P Pulse Ox O2 Delivery O2 Flow Rate FiO2 11/24/16 07:57 77 16 139/86 94 Room Air 11/24/16 07:36 36.7 73 16 135/84 95 Room Air 11/24/16 06:29 36.7 81 16 143/89 94 Room Air Notes Mental Status: alert / awake / arousable, participated in evaluation Pt Amnestic to Procedure: Yes Nausea / Vomiting: adequately controlled Pain: adequately controlled Airway Patency, RR, SpO2: stable & adequate BP & HR: stable & adequate Hydration State: stable & adequate Anesthetic Complications: no major complications apparent
== END | disposition home or self-care (01) ==
LOC: X.SURG 06:03
PROVIDERS: ATTEND Ophthalmology
DX: H25.12 Age-related nuclear cataract, left eye (principal); E66.9 Obesity, unspecified; I10 Essential (primary) hypertension; M19.90 Unspecified osteoarthritis, unspecified site; F17.220 Nicotine dependence, chewing tobacco, uncomplicated; Z85.828 Personal history of other malignant neoplasm of skin; Z90.49 Acquired absence of other specified parts of digestive tract; Z96.649 Presence of unspecified artificial hip joint; Z96.659 Presence of unspecified artificial knee joint

== ENCOUNTER → 2017-02-10 | Outpatient (CLI) | payer BC ==
[~2017-02-10] MED LIST changes: -500ML BSS 0.3ML EPI 1:1000PF IRRIG ONE; -ACET-1256 PO; -ACETAMINOPHEN 325 MG TAB PO PRN; -AMVISC PLUS 0.8ML SYRINGE INT OCU ONE; -ASPI81TA28 PO; -ATOR-26 PO; -ATROPINE SULFATE 0.1 MG/ML 5ML SYR IV PRN; -BSS FLUSH ONE; -COEN100C7 PO; -DOXY100C76 PO; -ENDOCOAT 0.85ML SYRINGE INT OCU ONE; -EpHEDrine SULFATE INJ 50 MG/ML AMP IV PRN; -EpINEphrine INJ 1MG/ML AMP 1 MG/ML AMP ONE; -LACTATED RINGER'S 1000ML 500 ML IV SCH; -LIDOCAINE 4% OP SOLN DROP CHARGE OPL SCH; -LIDOCAINE HCL 1% MPF 2 ML VIAL ONE; -METO50TA7 PO; -MIDAZOLAM HCL 1 MG/ML 2ML VIAL ONE; -MIX: 4ML BSS 1ML EPI 1:1000 PF TOP ONE; -MOXIFLOXACIN OPH SOLN PER DROP CHARGE ONE; -NTRGSL/4 UT; -POVIDONE-IODINE OP SOLN 30 ML BTL ONE; -PROPARACAINE 0.5% OP SOLN PER DROP CHARGE OPL SCH; -TOBRAMYCIN/DEXAMETHASONE OPH OINT PER APPLN CHARGE ONE
[2017-02-10 13:06] LABS: ESTIMATED AVERAGE GLUCOSE 123 mg/dl; HA1C FLAG Normal (Normal)
[2017-02-10 13:07] LABS: ALT/SGPT 34 U/L (12-78); AST/SGOT 27 U/L (15-37); BLOOD UREA NITROGEN 18 mg/dl (7-18); BUN/CREATININE RATIO 15.2 (10-20); CALCIUM 8.9 mg/dl (8.5-10.1); CARBON DIOXIDE 26 mmol/L (21-32); CHLORIDE 104 mmol/L (98-107); CHOLESTEROL 241 mg/dl (0-200); GLUCOSE 116 mg/dl (70-99); POTASSIUM 4.2 mmol/L (3.5-5.1); SODIUM 138 mmol/L (136-145)
[2017-02-10 13:11] LABS: ALB/GLOB RATIO 0.9 (0.9-2); ALKALINE PHOSPHATASE 80 U/L (45-117); CHOLESTEROL/HDL RATIO 4.7; HDL CHOLESTEROL 51 mg/dl; TRIGLYCERIDES 124 mg/dl (0-150); VERY LOW DENSITY LIPOPROT CALC 25 mg/dl
== END | disposition home or self-care (01) ==
LOC: C.LABSPEC 12:21
PROVIDERS: ATTEND Internal Medicine
DX: I10 Essential (primary) hypertension (principal); E78.5 Hyperlipidemia, unspecified; R73.9 Hyperglycemia, unspecified

== ENCOUNTER 2017-02-16 09:18 | Inpatient (IN) | payer BC, OTHER ==
[~2017-02-16] VITALS: Ht 167.6 cm; Wt 93.6 kg
[2017-02-16] VITALS (9 sets, daily range): BP systolic 123–138; BP diastolic 79–86; PULSE 78–84; TEMP 36.6; O2SAT 91–96; Ht 167.6 cm; Wt 93.6 kg
[2017-02-16] MEDS ORDERED: ASPIRIN 324 MG CHEW PO STA (12:03)
[2017-02-16 12:25] LABS: HEMATOCRIT 44.8 % (42-52); MEAN CELL VOLUME 88.5 fL (80-100); MEAN PLATELET VOLUME 9.9 fL (7.4-10.4); PLATELET COUNT 232 K/uL (130-400); RED BLOOD COUNT 5.06 M/uL (4.7-6.1)
[2017-02-16 12:26] LABS: MEAN CORPUSCULAR HGB CONC 33.9 g/dl (32-36)
[2017-02-16 12:46] LABS: PROTHROMBIN TIME (PATIENT) 10.7 SECONDS (9.0-12.0)
[2017-02-16 12:59] LABS: BUN/CREATININE RATIO 12.3 (10-20); CALCIUM 9.4 mg/dl (8.5-10.1); CREATININE 1.2 mg/dl (0.60-1.40); POTASSIUM 4.7 mmol/L (3.5-5.1)
--- NOTE | 2017-02-16 13:20 | History and Physical ---
History & Physical Date of Service Feb 16, 2017. History & Physical ADMISSION DATE : 02/16/2017 CHIEF COMPLAINT : 71-year-old male admitted directly from cardiopulmonary lab after he had a positive stress echocardiogram. PRESENT ILLNESS : Patient was seen in the office on 02/10/2017 for his regularly scheduled physical examination. He was complaining of recurrent episodes of left sided chest discomfort associated with exertion. He was quite vague with his symptomatology. He stated that he was having chest pressure. Always associated with exertion. Denied any associated diaphoresis or lightheadedness. No shortness of breath or palpitation. He was scheduled for stress echocardiogram which was done today. His baseline echocardiogram showed evidence of hypokinesis. He was able to exercise for a short time. His test was thought to be positive and suspicious for possible LAD territory ischemia. Dr. Junaid Wilde called me after the stress test was done and I made arrangements for patient to be admitted. His recommendation was to proceed with cardiac catheterization. Otherwise his medical problems include arterial hypertension, hypercholesterolemia but has not tolerated any statins in the past. She also has hyperglycemia. But his hemoglobin A1c has remained in good range. PAST MEDICAL HISTORY : * Osteoarthritis. Long-standing. He has had prior steroid injections in his right knee. * Left reverse shoulder replacement for osteoarthritis. Done by Dr. Dewayne Solis on 11/05/2016 * Bilateral cataract surgery * In June 2016 he was hospitalized with lower GI bleed. It was thought to be diverticular in nature. * Appendectomy in the remote past * Basal cell carcinoma lesion removed from his right ear * In 2012 cancerous skin lesion removed from his back. He had postoperative complications with infection. * Arterial hypertension treated for approximately 8 years * Episode of rectal bleeding in 2007. His colonoscopy showed evidence of diverticulosis. * Episode of angioedema in 2012. No clear etiology * Right knee wedge resection in 2008 SOCIAL HISTORY : He is has 2 sons. Denies any smoking. He used to chew tobacco. But he stopped within the last year. Occasional wine. About 2 cups of coffee per day. 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 He has 18 at this time. FAMILY HISTORY : His mother in her 80s had an aneurysm. Prior to that she had coronary artery disease and had a bypass graft. His father age 82. Had Alzheimer' s dementia. He had one brother living and well. One son is treated for lymphoma. ALLERGIES : * Percocet * Lisinopril. It was stopped at the time he presented with his angioedema. It was not sure whether that that was the cause. CURRENT MEDICATIONS : * Amlodipine 5 mg daily * CoQ10 1 tablet daily * He takes a preparation called Demetrio Adkins REVIEW OF SYSTEMS : He is doing quite well. Other than the symptomatology related to his chest discomfort he denies any other problem. No headache no dizziness no lightheadedness. He is post bilateral cataract surgery. Denied any earaches or sorethroat or neck pain. Chest discomfort as noted above. No shortness of breath. Good appetite. No abdominal pain no nausea no vomiting. No problem with his bowel movements. No problem urinating. He is recovered very nicely from his left shoulder surgery. PHYSICAL EXAMINATION : General: He is well-developed in no distress. His weight is 93.63 kg. Height 167.6 cm. BMI 33.33 Vital signs blood pressure 123/84, pulse 78, respiration 18, temperature 36.6, oxygen saturation 94% on room air Skin is warm and dry. No rash HEENT he is post cataract surgery both sides. No mucosal abnormalities in his nose mouth or throat Neck is supple without adenopathy or thyromegaly. No JVD. Normal cardiac pulses. No carotid bruit Chest is normal. Heart regular heart sounds without any murmur rub or gallop. Lungs are clear. Normal breath sounds. Abdomen is soft nontender without organomegaly or masses Back no spinal tenderness Extremities no edema clubbing or cyanosis. Scars from prior surgeries. Good pulses. Neurological examination: He is alert and oriented without evidence of any deficit. LABORATORY TESTS : WBC count 6300, hemoglobin 15.2, hematocrit 44.8, platelet count 232,000. Prothrombin time 10.7. INR 1.0. PRP is pending ASSESSMENT : * Unstable angina pectoris * Arterial hypertension * Hypercholesterolemia * Hyperglycemia * Diverticulosis * History of left shoulder replacement * Osteoarthritis * History of angioedema PLAN : Patient was admitted to PCU with telemetry. Resuscitation level I. Laboratory tests were ordered. He will be kept nothing by mouth. I spoke with Dr. Junaid Wilde. There is a possibility that he may have a cardiac catheterization done this afternoon all depends on his creatinine level whether he needs to be hydrated and also on the availability of the cardiac track laborer. Patient was given 324 mg chewable aspirin. The plan at this time is to proceed with cardiac catheterization either this afternoon or tomorrow. Further decision as far as treatment will depend on the findings during his cardiac catheterization.
--- NOTE | 2017-02-16 13:54 | CARDIOLOGY CONSULTATION ---
DATE OF CONSULTATION: 02/16/2017 TIME: 1306 p.m. CONSULTING PHYSICIAN: Dr. Cooper. REASON FOR CONSULTATION: Abnormal stress test/unstable angina. HISTORY OF PRESENT ILLNESS: Mr. Ly is a pleasant 71-year-old gentleman with a history significant for hypertension, who was referred for an outpatient stress echo by Dr. Cooper due to abnormal ECG and chest pain. During today's stress test, he had no chest discomfort while on the treadmill, but did have some shortness of breath and leg fatigue. He overall demonstrated poor exercise tolerance and was noted to have significantly abnormal stress echo images. He also had abnormal rest images with a baseline wall motion abnormalities. Full report to follow after these images are formally reviewed. Upon questioning Mr. Ly, he states that he has had approximately 2 episodes of chest pain. One was in November and one was just 2-3 weeks ago. The pain occurred at rest and was described as a chest tightness across his entire chest and into his jaw. There was no shortness of breath or other accompanying symptoms. Symptoms resolved spontaneously within a few minutes. He denies exertional symptoms. 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 He states he can walk up a flight of stairs without exertional chest discomfort or shortness of breath. He denies syncope, near syncope, palpitations, orthopnea, PND or edema. He has had GI bleeding in the past, stating that he had GI bleed in June of 2016 and he underwent colonoscopy and EGD. He states there was some diverticulosis. He did not require a blood transfusion and has not had any further bleeding since then. He denies fevers, chills, abdominal pain, nausea, or vomiting. Currently, he is asymptomatic following his stress test. Dr. Cooper was notified of his stress echo findings and is asked for consultation. REVIEW OF SYSTEMS: As above and review of systems otherwise negative and unremarkable. PAST MEDICAL HISTORY: 1. Hypertension. 2. Dyslipidemia, but has not required medications. 3. Hyperglycemia, but no formal diagnosis of diabetes. 4. Cataract surgery. 5. Left shoulder replacement in November of 2016. HOME MEDICATIONS: Include amlodipine 5 mg daily. ALLERGIES: INCLUDE LISINOPRIL, WHICH CAUSED ANGIOEDEMA; OXYCODONE AND PERCOCET, WHICH CAUSE RASH; AND TRAMADOL. SOCIAL HISTORY: No smoking. Rare alcohol. No drugs. and lives with his . His accompanies him today. He has 2 sons. 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 FAMILY HISTORY: His younger brother had bowel surgery recently. No known premature CAD in first degree relatives. PHYSICAL EXAMINATION: VITAL SIGNS: Temperature 36.6 degrees, heart rate 78 beats per minute, respiratory rate 18, blood pressure 123/84 mmHg, and oxygen saturation is 94% on room air. GENERAL: No acute distress. He is alert and oriented. HEENT: Anicteric sclerae. NECK: No appreciable JVD. No bruits. Normal carotid upstrokes bilaterally. CARDIAC EXAMINATION: PMI was nonpalpable. There was no ventricular heave. Regular, normal S1 and S2. There were no audible murmurs, rubs or gallops. LUNGS: Clear to auscultation bilaterally without wheezes, rales or rhonchi. ABDOMEN: Soft, nontender, and nondistended, normoactive bowel sounds. No bruits noted. EXTREMITIES: 2+ radial pulses bilaterally. Dexter's test okay bilaterally. 2+ dorsalis pedis pulses bilaterally. Trace bilateral lower extremity edema. No cyanosis. No palpable cords. PSYCHIATRIC: Affect appears appropriate. Stress echo images personally reviewed as noted above. Full report to follow. Labs were ordered to be done stat. White blood cell count 6.3, hemoglobin 15.2, and platelets 232. Sodium 138, potassium 4.7, BUN 15, creatinine 1.2, and glucose 106. INR is 1. ECG is not yet available, but will be ordered at this time. ASSESSMENT AND PLAN: 1. Abnormal stress echo: Findings on his stress echo are concerning for high risk coronary artery disease. His LV systolic function did not improve and his LV cavity did not become smaller, but in some views, actually appears to become more dilated. He does have resting wall motion abnormalities as well. This is concerning for multivessel coronary artery disease. Given these findings, it was recommended that he undergo coronary angiography. Risks and benefits were discussed with him in detail. He was made aware that CT surgery is not available at this facility and has given informed verbal consent to undergo diagnostic coronary angiography and percutaneous coronary intervention, if appropriate, at this facility. He has been n.p.o. since last evening. Stat labs were ordered. The plan is to pursue cardiac catheterization today if available. He is currently asymptomatic. 2. Chest pain/angina: Although chest pain occurred at rest and appeared to be somewhat atypical, with his stress echo findings, it is concerning for angina. Coronary angiography is planned above. 3. Hypertension: Blood pressure is adequately controlled on amlodipine. Continue current regimen. 4. Coronary artery disease: He has presumed coronary artery disease based on resting wall motion abnormalities and abnormal stress echo findings. Recommend aspirin 81 mg daily and high intensity statin therapy if he truly is found to have coronary artery disease. He has been given 324 mg of aspirin by Dr. Cooper upon admission as he is currently in the PCU. 5. Disposition: Cardiology will continue to follow. The patient's care has been discussed with Dr. Cooper. Remain n.p.o. for upcoming procedure as noted above. Highly complex medical issues. Thank you for allowing me participate in the care of Mr. Ly. Sincerely, JAMES
--- NOTE | 2017-02-16 14:06 | Procedure Note ---
Pre-Mod Sedation Assessment General Date of Moderate Sedation: Feb 16, 2017. Vital Signs: Vital Signs Past 12 Hours Date Time Temp Pulse Resp B/P (MAP) Pulse Ox O2 Delivery O2 Flow Rate FiO2 02/16/17 12:48 36.6 78 18 123/84 94 Room Air 02/16/17 12:22 36.6 78 18 123/84 94 Room Air Review Cardiovascular: regular rate, rhythm Abdomen: soft Lungs: lungs clear Pre-Sedation Airway Assessment Oral Cavity: WNL Short Thick Neck: No Hx of Sleep Apnea: No Smoking Status: Never Smoker Procedure Planning Contraindications-for Mod Sed: None Yes Notes The planned sedation has been discussed with the patient and consent obtained. I have identified the patient, determined the appropriateness of sedation and have assessed the patient immediately prior to the procedure. All medicine(s) and interventions are by my order.
[2017-02-16] MEDS ORDERED: FENTANYL CITRATE INJ 50 MCG/1 ML 2 ML VIAL ONE (14:14)
[2017-02-16] MEDS ORDERED: HEPARIN SOD (PORCINE) 1000 UNIT/ML 10 ML VIAL ONE (14:14)
[2017-02-16] MEDS ORDERED: MIDAZOLAM HCL 1 MG/ML 2ML VIAL ONE (14:14)
[2017-02-16] MEDS ORDERED: NiCARDipine HCL INJ 2.5 MG/ML 10 ML AMP ONE (14:14)
[2017-02-16] MEDS ORDERED: NITROGLYCERIN/D5W 100MCG/ML 20ML SYR ONE (14:14)
--- NOTE | 2017-02-16 14:36 | EXERCISE STRESS ECHO ---
*NOTICE TO RECEIVING CONSTITUTION PARTY AGENCY This information is strictly Confidential and protected under [place] law. [place] law prohibits you from making any further disclosure of this information unless further disclosure is expressly permitted by the written consent of the person to whom it pertains or is authorized by law. A general authorization for the release of medical or other information is not sufficient for this purpose. Hospital accepts no responsibility if the information is made available to any other person, INCLUDING THE PATIENT. Interpretation Summary * Name: KARL HATCH Study Date: 02/16/2017 09:37 AM BP: 125/84 mmHg * Patient Location: [facility] HR: 69 * : 1945 (M/d/yyyy) Gender: Male Height: 67 in * Age: 71 yrs Ethnicity: [place] Weight: 206 lb * Ordering Physician: Nasir Jeter * Referring Physician: Nasir Jeter * Performed By: Ana Chacko RCS * * Reason For Study: ABN EKG / CHEST PAIN * BSA: 2.0 m2 * -- Conclusions -- * Stress Echo: * 1. Abnormal stress echo suggesting multivessel CAD. LV cavity size increase in LV systolic function decreased compared to baseline. No significant augmentation visualized with new areas of akinesis noted. * 2. Abnormal exercise ECG at 92% MPHR. * 3. Exercise induced dyspnea. No chest pain reported. * 4. Appropriate blood pressure response to exercise. * 5. No arrhythmia. * 6. Poor exercise tolerance. * 7. Dr. Cooper immediately notified of findings while patient remained in the stress lab area. * Echo: * 1. Mildly dilated left ventricle with moderately reduced systolic function. EF 35-40%. Akinesis involving the mid to distal septum, distal inferior wall, distal lateral wall, and apex. Otherwise, global hypokinesis at rest. Moderate concentric left ventricular hypertrophy. Type 1 diastolic dysfunction. * 2. Sclerotic aortic valve without significant stenosis. * 3. Mild, eccentric posteriorly directed mitral regurgitation. Procedure Details * ECHOEX, CPT #[id number] * ECHO COLOR FLOW, CPT #[id number] * ECHO DOPPLER, CPT #[id number] Left Ventricle * Mildly dilated left ventricle with moderately reduced systolic function. EF 35-40%. Akinesis involving the mid to distal septum, distal inferior wall, distal lateral wall, and apex. Otherwise, global hypokinesis at rest. Moderate concentric left ventricular hypertrophy. Type 1 diastolic dysfunction. * Following exercise, there is no significant augmentation of visualized cantu. Baseline akinetic segments remained akinetic. The mid septum, mid inferior, mid inferolateral, mid anteroseptal, distal anterior, and mid lateral wall segments became akinetic. Left ventricle became more dilated and LV systolic function appeared to mildly decrease following exercise. Right Ventricle * The right ventricle is normal in size and function. Atria * The left atrium is borderline dilated. * Right atrial size is normal. Mitral Valve * The mitral valve is grossly normal. * There is no mitral valve stenosis. * Mild, eccentric posteriorly directed mitral regurgitation. Tricuspid Valve * The tricuspid valve is not well visualized, but is grossly normal. * There is no tricuspid stenosis. * Significant tricuspid regurgitation is absent. Aortic Valve * The aortic valve is trileaflet. * Sclerotic aortic valve without significant stenosis. * Trace aortic regurgitation. Pulmonic Valve * The pulmonary valve is inadequately visualized, but the Doppler data is adequate for interpretation. * Trace pulmonic valvular regurgitation. Great Vessels * The aortic root is normal size. * Ascending aorta of normal dimension * Normal pulmonary venous flow pattern. Mildly dilated IVC. Pericardium * There is no pericardial effusion. Stress Parameters * Sinus rhythm 77 bpm. PVC. Possible anterior infarct. * 1-2 mm horizontal and downsloping ST depression in leads II, III, aVF and V6, noted in recovery. Abnormalities persisted beyond 7 minutes into recovery, but did improve. * The stress portion of this study was personally supervised by the undersigned interpreting physician. * Rest heart rate was '69' BPM. * Rest blood pressure was '125/84' * Maximum heart rate achieved was 136 bpm. * Maximum heart rate was 92 % of maximum age-predicted heart rate. * Maximum blood pressure was '156/74' * Total exercise time was '03:29' * Maximum exercise MET level achieved was '5.10' METS * Maximum treadmill speed was '2.50' miles per hour. * Maximum treadmill elevation was '12.00'% grade. * Exercise was terminated due to 'leg fatigue and dyspnea' * Normal blood pressure response to exercise. MMode 2D Measurements and Calculations IVSd 1.5 cm IVSs 1.5 cm LVIDd 5.6 cm LVIDs 4.3 cm LVPWd 1.4 cm LVPWs 1.5 cm IVS/LVPW 1.1 FS 23.5 % EDV(Teich) 155.8 ml ESV(Teich) 83.5 ml EF(Teich) 46.4 % EDV(cubed) 178.8 ml ESV(cubed) 80.0 ml EF(cubed) 55.3 % % IVS thick -2.67 % % LVPW thick 4.1 % LV mass(C)d 367.5 grams LV mass(C)dI 179.5 grams/m\S\2 LV mass(C)s 246.9 grams LV mass(C)sI 120.6 grams/m\S\2 SV(Teich) 72.3 ml SI(Teich) 35.3 ml/m\S\2 SV(cubed) 98.8 ml SI(cubed) 48.3 ml/m\S\2 Ao root diam 3.8 cm Ao root area 11.6 cm\S\2 ACS 2.2 cm LA dimension 3.9 cm asc Aorta Diam 3.3 cm LA/Ao 1.0 LVOT diam 2.0 cm LVOT area 3.3 cm\S\2 LVAd ap4 52.6 cm\S\2 LVLd ap4 9.7 cm EDV(MOD-sp4) 231.6 ml EDV(sp4-el) 241.0 ml LVAs ap4 41.1 cm\S\2 LVLs ap4 9.0 cm ESV(MOD-sp4) 155.1 ml ESV(sp4-el) 158.9 ml EF(MOD-sp4) 33.0 % EF(sp4-el) 34.1 % SV(MOD-sp4) 76.5 ml SI(MOD-sp4) 37.4 ml/m\S\2 SV(sp4-el) 82.1 ml SI(sp4-el) 40.1 ml/m\S\2 Doppler Measurements and Calculations MV E max mohinder 70.2 cm/sec MV A max mohinder 129.0 cm/sec MV E/A 0.54 MV P1/2t max mohinder 74.2 cm/sec MV P1/2t 51.0 msec MVA(P1/2t) 4.3 cm\S\2 MV dec slope 426.0 cm/sec\S\2 MV dec time 0.16 sec Ao V2 max 110.0 cm/sec Ao max PG 4.8 mmHg Ao max PG (full) 2.4 mmHg CORY(V,A) 2.3 cm\S\2 CORY(V,D) 2.3 cm\S\2 LV V1 max PG 2.4 mmHg LV V1 max 77.4 cm/sec MR max mohinder 577.8 cm/sec MR max PG 134.0 mmHg TV E max mohinder 54.7 cm/sec PA V2 max 81.2 cm/sec PA max PG 2.6 mmHg PI max mohinder 194.2 cm/sec PI max PG 15.1 mmHg PI dec slope 208.0 cm/sec\S\2 PI P1/2t 273.5 msec
[2017-02-16] MEDS ORDERED: SODIUM CHLORIDE 0.9% 1000ML 1,000 ML IV SCH (15:48)
--- NOTE | 2017-02-16 15:48 | Procedure Note ---
Post-Mod Sedation Assessment General Date of Moderate Sedation Feb 16, 2017. Vital Signs: Vital Signs Past 12 Hours Date Time Temp Pulse Resp B/P (MAP) Pulse Ox O2 Delivery O2 Flow Rate FiO2 02/16/17 15:25 82 16 145/95 (112) 96 Room Air 02/16/17 15:15 86 16 152/95 (114) 96 Room Air 02/16/17 12:48 36.6 78 18 123/84 94 Room Air 02/16/17 12:22 36.6 78 18 123/84 94 Room Air Review - Discharge Criteria Vital Signs Stable: Yes Alert/Oriented/Conversant: Yes Returned to Baseline Mental St: Yes Nausea Absent/Minimal: Yes Pain/Discomfort/Absent/Minimal: Yes Normal/Baseline Respirations: Yes Active Bleeding?: No
--- NOTE | 2017-02-16 16:07 | Cardiac Catheterization ---
Procedure Note Procedure Date Feb 16, 2017. Pre-Procedure Diagnosis Angina, Positive Stress Test AUC Score 9 Post-Procedure Diagnosis Severe CAD, Elevated Intracardiac Pressures Procedure(s) Performed Coronary Angiography, Left Heart Cath, Radial Artery Angiography Fisher[employer] Division Chief Dr. Wilde Operational Intelligence Officer(s) Rl Estimated Blood Loss < 20 ml Medication(s) Fentanyl, Heparin, Nicardipine, Versed, Lidocaine 1% Summary of Findings Coronary angiography: 1. Left main coronary artery: The LMCA does not have significant CAD angiographically. 2. Left anterior descending: The LAD wraps around the apex, Ostial LAD 100%, but fills via right to left collaterals. There is a large lateral distribution vessel, likely a diagonal with 2 lateral branches that come together near a trifurcation point with proximal 100% stenosis. This fills via [id number] collaterals. 3. Circumflex: The circumflex is a small to medium caliber vessel without significant CAD. 4. Right coronary artery: The RCA is large and dominant. Proximal RCA 50% followed by early mid RCA 98% with HAZEL 3 flow. Right to left collaterals. RCA PDA without significant CAD. 5. Ramus intermedius: Large ramus intermedius with lateral branch. No significant CAD. Left heart catheterization: 1. Left ventriculography was not performed. 2. No significant aortic stenosis. 3. Mildly elevated LVEDP; 18mmHg. Right radial angiography: 1. The introducer wire was unable to be fully advanced, but was able to be advanced to fully advance the sheath over the wire. A Glidewire was unable to be advanced to the elbow area and therefore angiography was performed. 2. Right radial angiography demonstrated a mid right radial stenosis of approximately 80-90%, distal to an acute bend with a moderate lesion, approximately 60% within the bend. A Glidewire was then able to be passed through this area, without difficulty and 5 Maori diagnostic catheters were able to easily pass, without known complication. Sedation start time 2:40 p.m. Sedation end time 2:55 p.m. Impression: 1. Severe multivessel CAD. 2. Mildly elevated LVEDP. 3. No significant aortic stenosis. 4. Severe right radial artery stenosis. Plan: 1. CT surgery referral for CABG evaluation. Dr. Brody, CT surgeon at [facility] [place] [facility], has accepted Mr. Ly in transfer. 2. High-intensity statin therapy. 3. Aspirin 81 mg daily. 4. Beta-jose raul therapy. Dr. Cooper was notified of findings and recommendations. He agrees with transfer. Images were personally reviewed with Mr. Ly and his at the bedside. Hemodynamics Rest Ao: 125/77 Final Ao: 139/85 LV: 135/7. LVEDP 18 mmHg Recommendations CABG Specimens None Radiation Exposure (mGy) 1615 mGy. Fluoro time 6.7 min. Contrast (mls) 55 ml Procedural Complication(s) None Disposition PCU ACC Data Cardiac Status Clinical evaluation leading to the procedure CAD Presntation: Positive Stress Test Anginal Classification: CCS IV Heart Failure: No Cardiogenic Shock w/in 24Hrs: No Cardiac Arrest w/in 24Hrs: No Imaging studies past 6 months: No Stress studies past 6 months: Yes Standard Exercise Stress Test: Yes - Positive, Risk/Extent of Ischemia (High) Stress Echocardiogram: Yes - Positive, Risk/Extent of Ischemia (High) Coronary Anatomy Dominant: Right Left Main (% Stenosis): Normal LAD (% Stenosis): Ostial (100%) D1 (% Stenosis): Proximal (100%) Circumflex (% Stenosis): Normal RCA (% Stenosis): Proximal (50%), Mid (98%) R PDA (% Stenosis): Normal Ramus (% Stenosis): Normal Left Ventricular Angiography EF (%): n/a Diagnostic Physician's Name: Junaid Wilde MD Status: Elective Closure Device Percutaneous Entry Location: Radial Closure Device: Radial Band Recommendations: CABG
--- NOTE | 2017-02-16 16:07 | Consultant Recommendations ---
Spanish Lecturer Recommendations Date of Service Feb 16, 2017. Spanish Lecturer Recommendations ACTIVITY RECOMMENDATIONS: Excess manipulation of the wrist should be avoided for the next 24-48 hours. * No lifting over 2 pounds (approximately a 1/2 gallon of milk) with the utilized arm for 24 hours. * No strenuous activity such as bowling or tennis for 3 days. * Keep the site of the procedure covered with a bandage for 24 hours. *You may shower the day after the procedure. Do not take a tub bath or submerge the puncture site in water for the next 3 days. *Do not operate any motorized equipment for 3 days. SPECIAL CARE INSTRUCTIONS: The site may be slightly bruised and sore following your procedure. Should any of the following occur, contact the Dr. who performed your procedure. 1. Redness/inflammation, swelling, chills, or fever, or colored drainage at procedure site within 3-7 days after your procedure. 2. Coldness, discoloration, ongoing numbness, severe pain, or swelling. Expect mild tingling of hand and tenderness at the puncture site for up to three days. If this persists beyond three days, or other symptoms develop, notify the Dr. who performed your procedure. BLEEDING: If the procedure site on your wrist begins to bleed, do not panic 1. Place 1 or 2 fingers firmly just slightly above the insertion site to stop the bleeding. You may be able to feel your pulse as you hold pressure. 2. Lift your finger after 5 minutes to see if the bleeding has stopped. 3. Once the bleeding has stopped, gently wipe the wrist area clean with a bandage. * If the bleeding from your wrist does not stop after 10 minutes, or if there is a large amount of bleeding or spurting, call 911 (do not drive yourself to the hospital). SKIN IRRITATION: * You may experience some redness and/or swelling in the area where radiation was administered. If any skin irritation occurs, please contact your family physician. FOLLOW UP VISIT: Keep any scheduled doctor appointments.
--- NOTE | 2017-02-16 16:59 | Progress Note ---
Progress Note Date of Service Feb 16, 2017. Progress Note Patient was admitted directly from the cardiopulmonary laboratory after he had abnormal stress echocardiogram. He had evidence of cardiomyopathy with decreased wall motion and ejection fraction around 35%. He had a cardiac catheterization done this afternoon by Dr. Junaid Wilde. Patient had multivessel severe coronary artery disease. Including the following: * Left main coronary artery did not have any significant disease. * His LAD wraps around the apex. He had ostial LAD 100% stenosis but fills via right to left collaterals. There is a large lateral distribution vessels were likely a diagonal with 2 lateral branches that come together near a trifurcation point with proximal 100% stenosis. This fills via left to left collaterals * The circumflex artery was a small to medium caliber vessel without significant stenosis. * The right coronary artery was large and dominant. There was a proximal RCA 50 % stenosis followed by early mid RCA 98% stenosis with HAZEL-3 flow. Right-to- left collaterals. RCA PDA without significant disease. * Large ramus intermedius with lateral branch. No significant coronary artery disease. In view of the finding on his cardiac catheterization the recommendation was to proceed with coronary artery bypass graft. Dr. Wilde already called to [facility] and spoke with Dr. Mazariegos. The patient was accepted for transfer. He will be transferred by ambulance with ACLS. Patient is on aspirin. It was started before his cardiac catheterization he had a chewable 324 mg dose and then placed on daily aspirin. Dr. Wilde already started him on atorvastatin 80 mg daily and also metoprolol tartrate 25 [address] day[address] Dr[address] Wilde spoke with the patient and his in detail and explained to them all the findings. I also met with the family and everybody is in agreement to transfer the patient to [facility] for further treatment.
[2017-02-16] MEDS ORDERED: ATORVASTATIN 40 MG TAB PO SCH (21:00)
[2017-02-16] MEDS ORDERED: METOPROLOL TARTRATE 25 MG TAB PO SCH (21:00)
[2017-02-17] MEDS ORDERED: ASPIRIN 81 MG ECTAB PO SCH (09:00)
--- NOTE | 2017-02-23 16:04 | Discharge Summary ---
Discharge Summary Date of Service Feb 23, 2017. Discharge Summary ADMISSION DATE : 02/16/2017 DISCHARGE DATE : 02/16/2017 DISCHARGE DIAGNOSES : * multivessel occlusive coronary artery disease * Unstable angina pectoris * arterial hypertension * Hypercholesterolemia CONSULTATION: * Dr. Junaid Wilde in cardiology PROCEDURE: * cardiac catheterization done by Dr. Wilde 71-year-old made admitted directly from the cardiopulmonary laboratory after he had a stress echocardiogram done. Patient presented to the office for his regularly scheduled visit. He was complaining of discomfort in his chest mostly the left side with the exertion. His symptomatology was clearly associated with activity. He was scheduled for a stress echocardiogram. It was done on the day of admission. It was markedly positive showing evidence of ischemic changes. He also had decreased left ventricular ejection fraction to 45%. He had significant wall motion abnormalities. The plan was to proceed with cardiac catheterization. PAST MEDICAL HISTORY, SOCIAL HISTORY, FAMILY HISTORY : NOTED ON THE ADMISSION HISTORY AND PHYSICAL ALLERGIES : * lisinopril * Hydrocodone * Tramadol MEDICATIONS ON ADMISSION : NOTED ON HOME MEDICATION LIST. PHYSICAL EXAMINATION AND ADMISSION LABORATORY TESTS : NOTED ON THE ADMISSION HISTORY AND PHYSICAL HOSPITAL COURSE : patient was admitted to PCU with telemetry. He was kept n.p.o. Cardiac catheterization was done on the same day of his admission. It was markedly abnormal. Showing multiple occlusive coronary artery disease in multiple vessels. The recommendation was to proceed with coronary artery bypass surgery. Dr. Wilde discussed the findings with the patient and his family. The decision was to proceed with transfer to [facility]. Dr. Wilde spoke with Dr. Mazariegos. Patient was accepted for transfer. Arrangements were made for transfer by ambulance. This was accomplished once a bed became available at [facility].
== END 2017-02-16 19:45 | disposition short-term general hospital (02) | DRG 287 ==
LOC: C.CPL 09:18 → C.2T 12:41
PROVIDERS: ADMIT Internal Medicine; ATTEND Internal Medicine
PROC: 4A023N7 Measurement of Cardiac Sampling and Pressure, Left Heart, Percutaneous Approach (ICD-10-PCS; principal; 2017-02-16 14:33)
PROC: B211YZZ Fluoroscopy of Multiple Coronary Arteries using Other Contrast (ICD-10-PCS; principal; 2017-02-16 14:33)
DX: I25.10 Atherosclerotic heart disease of native coronary artery without angina pectoris (principal); I20.0 Unstable angina; M17.11 Unilateral primary osteoarthritis, right knee; Z85.828 Personal history of other malignant neoplasm of skin; I10 Essential (primary) hypertension; Z87.891 Personal history of nicotine dependence; E78.00 Pure hypercholesterolemia, unspecified; R73.9 Hyperglycemia, unspecified; Z82.49 Family history of ischemic heart disease and other diseases of the circulatory system

== ENCOUNTER → 2017-04-25 | Outpatient (CLI) | payer BC ==
[~2017-04-25] MED LIST changes: +ACET-1256 PO; -AMLO-110 PO; +ASPI81TA28 PO; +ATOR-26 PO; +COEN100C7 PO; +DOXY100C76 PO; -HOME1TAB18 PO; +METO50TA7 PO; +NTRGSL/4 UT; -PRLSR20 PO; -SLWMEC PO
[2017-04-25 17:12] LABS: HEMATOCRIT 42.8 % (42-52); MEAN CELL VOLUME 87.5 fL (80-100); MEAN CORPUSCULAR HEMOGLOBIN 28.2 pg (25-34); MEAN CORPUSCULAR HGB CONC 32.2 g/dl (32-36); MEAN PLATELET VOLUME 10.7 fL (7.4-10.4); PLATELET COUNT 246 K/uL (130-400); RED BLOOD COUNT 4.89 M/uL (4.7-6.1); WHITE BLOOD COUNT 10.19 K/uL (4.8-10.8)
[2017-04-25 17:20] LABS: BLOOD UREA NITROGEN 21 mg/dl (7-18); BUN/CREATININE RATIO 18.3 (10-20); CALCIUM 9.4 mg/dl (8.5-10.1); CARBON DIOXIDE 27 mmol/L (21-32); CHLORIDE 104 mmol/L (98-107); CREATININE 1.14 mg/dl (0.60-1.40); GLUCOSE 103 mg/dl (70-99); POTASSIUM 4.7 mmol/L (3.5-5.1); SODIUM 138 mmol/L (136-145); URINE APPEARANCE CLEAR (CLEAR); URINE BILIRUBIN NEG (NEG); URINE COLOR YELLOW; URINE NITRITE NEG (NEG); URINE PH 5.5 (4.5-7.5); URINE SPECIFIC GRAVITY 1.017 (1.000-1.030); UROBILINOGEN NEG (NEG)
[2017-04-25 17:21] LABS: MANUAL MICROSCOPIC REQUIRED? NO; REVIEW REQ? NO
[2017-04-25 17:23] LABS: PARTIAL THROMBOPLASTIN RATIO 1.2; PROTHROMBIN TIME (PATIENT) 10.9 SECONDS (9.0-12.0)
[2017-04-25 17:27] LABS: CHOLESTEROL/HDL RATIO 2.4
== END | disposition home or self-care (01) ==
LOC: C.LABBC 14:04
PROVIDERS: ATTEND Orthopaedic Surgery
DX: M25.512 Pain in left shoulder (principal); E78.5 Hyperlipidemia, unspecified; I25.10 Atherosclerotic heart disease of native coronary artery without angina pectoris

== ENCOUNTER 2017-04-29 06:25 | Inpatient (IN) | payer BC, OTHER ==
[2017-04-28 14:55] VITALS: BMI 16.0
--- NOTE | 2017-04-28 18:40 | HISTORY & PHYSICAL EXAMINATION ---
DATE OF ADMISSION: 04/29/2017 HISTORY AND PHYSICAL ADMISSION NOTE CHIEF COMPLAINT: Loosening of the left shoulder prosthesis. HISTORY OF PRESENT ILLNESS: Joaquin is a pleasant 71-year-old male who underwent an uncomplicated reverse left shoulder arthroplasty in November of 2016. His postoperative course was uneventful. He regained Full range of motion and he is doing very well with his shoulder. A couple of days ago, he had a forced external rotation to his left shoulder and noticed significant pain and weakness. He was unable to raise his shoulder. He called the office and I had him come in right away for an x-ray. Radiographs demonstrated displacement of the glenosphere complement. He has elected to proceed with a revision shoulder arthroplasty. He understands the risks, benefits, alternatives to procedure and elected to proceed. MEDICATIONS: Include Tylenol 500 mg daily, aspirin 81 mg daily, Lipitor 80 mg at night, CoQ10 100 mg caplets twice a day, Toprol-XL 50 mg daily, Nitrostat as needed and Monodox 100 mg daily. PAST MEDICAL HISTORY: Significant for arterial hypertension, osteoarthritis; scarlet fever as a kid as well as unstable angina, which he was treated for about 2 months ago. PAST SURGICAL HISTORY: Significant for a left shoulder rotator cuff repair by Dr. Tillman in 2005, appendectomy, basal cell carcinoma removed from the right ear in 2012, left total hip arthroplasty in 2012 and a right knee wedge resection in 2008. ALLERGIES: HYDROCODONE, LISINOPRIL, OXYCODONE AND TRAMADOL. SOCIAL HISTORY: He is with 2 sons. Denies any tobacco, alcohol or IV drug use. REVIEW OF SYSTEMS: He complains of left shoulder pain and weakness. All other pertinent review of systems are negative. PHYSICAL EXAMINATION: GENERAL: He is awake, alert and oriented x3. He is in no apparent distress. He is very pleasant. HEENT: Pupils are equal, round and reactive to light. Extraocular motion intact. Oral mucosa is pink and moist. HEART: Regular rate per radial pulse. LUNGS: Lizzy symmetrically bilaterally with no audible breath sounds. ABDOMEN: Soft, nontender, nondistended. MUSCULOSKELETAL: On physical examination of the left shoulder, he has very limited range of motion of his shoulder. He can only forward elevate about 20 degrees. Passively, I can try to get him a little further, but there seems to be a mechanical stop. His radial, median and ulnar nerves were checked and intact at his wrist. His axillary nerve was intact bilateral sensation. I was unable to get a great exam of the axillary nerve. The incisions are all well healed. IMAGING: X-rays from the office show a displaced glenosphere component. The glenoid baseplate appears to be intact and the humeral stem appears to be intact as well. IMPRESSION: Loosening of a left reverse shoulder prosthesis. PLAN: We will do a revision reverse shoulder arthroplasty to include reimplantation of the glenosphere complement. Postoperatively, he will be kept overnight for postoperative medical management and likely discharged to home the following day. JAMES
[2017-04-29] VITALS (9 sets, daily range): BP systolic 114–156; BP diastolic 70–96; PULSE 67–74; TEMP 36.3–36.8; O2SAT 90–97; Ht 170.2 cm; Wt 88.6 kg
[~2017-04-29] VITALS: Ht 170.2 cm; Wt 88.6 kg
[~2017-04-29 06:25] MED LIST changes: +ACETAMINOPHEN 500 MG TAB PO SCH; +CEFAZOLIN 2000MG IV PUSH 10 ML IV SCH; -COEN150C PO; +LACTATED RINGER'S 1000ML 1,000 ML IV SCH; +LACTATED RINGER'S 1000ML IV SCH; +ROPIVACAINE 5MG/ML 30 ML 150 MG, BUPIVACAINE 0.5% MPF INJ 30 ML, EpINEphrine HCL INJ 0.... INFIL SCH
[2017-04-29] MEDS ORDERED: MIDAZOLAM HCL 1 MG/ML 2ML VIAL ONE (06:48)
[2017-04-29] MEDS ORDERED: PROPOFOL IV EMULSION 10 MG/ML 20 ML VIAL IV ONE (06:48)
[2017-04-29] MEDS ORDERED: ONDANSETRON INJ 2 MG/ML 2 ML VIAL ONE (06:48)
[2017-04-29] MEDS ORDERED: GLYCOPYRROLATE INJ 0.2 MG/ML VIAL ONE (06:48)
[2017-04-29] MEDS ORDERED: ROCURONIUM BROMIDE 10 MG/ML 5 ML VIAL IV ONE (06:48)
[2017-04-29] MEDS ORDERED: LIDOCAINE HCL 2% 2 ML VIAL (20MG/ML) ONE (06:48)
[2017-04-29] MEDS ORDERED: FENTANYL CITRATE INJ 50 MCG/1 ML 2 ML VIAL ONE ×2 (06:48→06:49)
[2017-04-29] MEDS ORDERED: NEOSTIGMINE METHYLSULFATE 5 MG/5 ML SYR ONE (06:48)
[2017-04-29] MEDS ORDERED: DEXAMETHASONE SOD INJ 4 MG/ML VIAL ONE ×2 (06:48→07:49)
[2017-04-29] MEDS: TRANEXAMIC ACID INJ 1,000 MG in SODIUM CHLORIDE 0.9% 100ML 100 ML IV SCH ×2 (07:24→08:11)
[2017-04-29] MEDS ORDERED: ASPIRIN 81 MG ECTAB PO ONE (07:32)
[2017-04-29] MEDS ORDERED: BUPIVACAINE 0.25% 30 ML VIAL ONE (07:48)
[2017-04-29] MEDS ORDERED: EpINEphrine INJ 1MG/ML AMP 1 MG/ML AMP ONE (07:49)
[2017-04-29] MEDS ORDERED: ORTHO JOINT ANESTHETIC ONE (07:54)
[2017-04-29] MEDS ORDERED: BACITRACIN 50000 UNIT VIAL ONE (07:54)
[2017-04-29] MEDS ORDERED: FENTANYL CITRATE INJ 50 MCG/1 ML 2 ML VIAL IV PRN (08:15)
[2017-04-29] MEDS ORDERED: ONDANSETRON INJ 2 MG/ML 2 ML VIAL IV PRN ×2 (08:15→10:00)
[2017-04-29] MEDS ORDERED: PROMETHAZINE HCL INJ 6.25 MG in SODIUM CHLORIDE 0.9% 50ML 50 ML IV PRN (08:15)
[2017-04-29] MEDS ORDERED: EpHEDrine SULFATE INJ 50 MG/ML AMP IV PRN (08:15)
[2017-04-29] MEDS ORDERED: ATROPINE SULFATE 0.1 MG/ML 5ML SYR IV PRN (08:15)
[2017-04-29] MEDS ORDERED: PHENYLEPHRINE 100MCG/ML 5ML SYR ONE (09:53)
[2017-04-29] MEDS ORDERED: PHENYLEPHRINE HCL INJ 10 MG/ML VIAL ONE (09:53)
[2017-04-29] MEDS ORDERED: BISACODYL 10 MG SUPP PR PRN (10:00)
[2017-04-29] MEDS ORDERED: SOD PHOSPHATE/SOD BIPHOSPHATE ENEMA 132 ML BTL PR PRN (10:00)
[2017-04-29] MEDS ORDERED: MoRPHine SULFATE 2 MG/ML CARP IV PRN (10:00)
[2017-04-29] MEDS ORDERED: MAGNESIUM HYDROXIDE SUSP 30 ML UDC PO PRN (10:00)
[2017-04-29] MEDS ORDERED: NITROGLYCERIN 0.4 MG SL PER TAB CHARGE UT SCH (10:00)
[2017-04-29] MEDS ORDERED: METOCLOPRAMIDE HCL INJ 5 MG/ML 2 ML VIAL IV PRN (10:00)
[2017-04-29] MEDS ORDERED: NALOXONE HCL 0.4 MG/1 ML VIAL/CARP IV PRN (10:00)
--- NOTE | 2017-04-29 10:00 | [facility] Post Operative Brief Note ---
Immediate Operative Summary Operative Date Apr 29, 2017. Pre-Operative Diagnosis Loosening of left reverse shoulder prothesis Post-Operative Diagnosis Loosening of left reverse shoulder prothesis Procedure(s) Performed Left revision (one component), reverse total shoulder arthroplasty Surgeon Dr. Solis Irrigation Tax Assessor Collector Surgeon(s) ROSEANN Ladd Estimated Blood Loss 100 cc Findings as above Specimens A) Left shoulder removed hardware Complication(s) None Disposition Recovery Room / PACU
[2017-04-29] MEDS ORDERED: ESMOLOL HCL 10 MG/ML 10 ML VIAL ONE (10:05)
--- NOTE | 2017-04-29 10:52 | DIAGNOSTIC IMAGING REPORT ---
L SHOULDER MIN 2 VIEWS ROUTINE HISTORY: 71 years-old Male Post shoulder surgery status post left shoulder surgery. Degenerative joint disease COMPARISON: Left shoulder radiographs 11/05/2016 and 10/11/2016 TECHNIQUE: 3 views of the left shoulder FINDINGS: Reverse left shoulder arthroplasty noted with surgical drain and skin kemi in place. Expected deep tissue swelling and air about the left shoulder. No evidence of malalignment. 4 mm bone fragment is noted inferior to the right glenoid which may reflect loose body, small fracture fragment or fragmented osteophyte. Moderate degenerative changes of the AC joint. 4 mm corticated bone fragment lateral to the acromium suggests fragmented osteophyte. Prior median sternotomy. Left basilar opacity suggests effusion with consolidation. IMPRESSION: 1. Reverse left shoulder arthroplasty in satisfactory alignment. 2. 4 mm bone fragment inferior to the glenoid may reflect loose body, small fracture fragment or fragmented osteophyte. The above report was generated using voice recognition software. It may contain grammatical, syntax or spelling errors. Electronically signed by: Koby Padilla M.D. 04/29/2017 10:51 AM Dictated Date/Time: 04/29/2017 10:46 AM
--- NOTE | 2017-04-29 11:08 | Anesthesiology Progress Note ---
Anesthesia Post Op Note Date & Time Apr 29, 2017 at 11:07 Vital Signs Pain Intensity: 0 Vital Signs Past 12 Hours Date Time Temp Pulse Resp B/P (MAP) Pulse Ox O2 Delivery O2 Flow Rate FiO2 04/29/17 11:02 36.6 04/29/17 10:57 68 22 95 04/29/17 10:57 69 22 04/29/17 10:56 126/78 04/29/17 10:52 71 14 04/29/17 10:52 71 14 96 04/29/17 10:51 127/77 04/29/17 10:47 72 20 04/29/17 10:47 72 20 97 04/29/17 10:46 127/81 04/29/17 10:44 71 19 96 04/29/17 10:44 70 19 04/29/17 10:41 124/84 04/29/17 10:39 72 15 04/29/17 10:39 72 15 99 04/29/17 10:36 127/87 04/29/17 10:34 72 17 99 04/29/17 10:34 72 17 04/29/17 10:33 71 22 04/29/17 10:33 70 22 100 04/29/17 10:31 130/85 04/29/17 10:28 70 17 100 04/29/17 10:28 70 17 04/29/17 10:26 118/85 04/29/17 10:23 72 16 04/29/17 10:23 72 16 99 04/29/17 10:21 127/82 04/29/17 10:19 166/80 04/29/17 10:18 36.2 84 13 166/80 100 Oxymask 04/29/17 10:18 72 11 04/29/17 10:18 84 11 98 04/29/17 06:51 36.5 74 18 124/96 96 Room Air Notes Mental Status: alert / awake / arousable, participated in evaluation Pt Amnestic to Procedure: Yes Nausea / Vomiting: adequately controlled Pain: adequately controlled Airway Patency, RR, SpO2: stable & adequate BP & HR: stable & adequate Hydration State: stable & adequate Anesthetic Complications: no major complications apparent Block working well in pacu
[2017-04-29] MEDS: KETOROLAC TROMETHAMINE 15 MG/ML VIAL IV. SCH ×2 (12:07→18:25)
[2017-04-29] MEDS: POTASSIUM CHLORIDE INJ 10 MEQ in SODIUM CHLORIDE 0.9% 1000ML 1,000 ML IV SCH ×2 (12:26→21:51)
[2017-04-29] MEDS: ACETAMINOPHEN IV 1,000 MG in EMPTY BAG 0 ML IV SCH ×2 (13:24→21:31)
[2017-04-29] MEDS: CEFAZOLIN IV 2,000 MG in SYRINGE 0 ML IV SCH (17:03)
[2017-04-29] MEDS ORDERED: ATORVASTATIN 40 MG TAB PO SCH (21:00)
[2017-04-29] MEDS ORDERED: SENNA 8.6 MG TAB PO SCH (21:00)
[2017-04-29] MEDS: DOCUSATE SODIUM 100 MG CAP PO SCH (21:30)
[2017-04-30] MEDS: KETOROLAC TROMETHAMINE 15 MG/ML VIAL IV. SCH ×2 (00:22→06:14)
[2017-04-30] MEDS: CEFAZOLIN IV 2,000 MG in SYRINGE 0 ML IV SCH (00:23)
[2017-04-30 03:17] VITALS: BP 105/65; PULSE 69; TEMP 36.3; O2SAT 92
[2017-04-30 06:04] LABS: HEMATOCRIT 34.1 % (42-52); MEAN CORPUSCULAR HEMOGLOBIN 28.1 pg (25-34); MEAN CORPUSCULAR HGB CONC 32.3 g/dl (32-36); MEAN PLATELET VOLUME 10.1 fL (7.4-10.4); PLATELET COUNT 207 K/uL (130-400); RED BLOOD COUNT 3.92 M/uL (4.7-6.1); WHITE BLOOD COUNT 10.32 K/uL (4.8-10.8)
[2017-04-30] MEDS: ACETAMINOPHEN IV 1,000 MG in EMPTY BAG 0 ML IV SCH (06:13)
[2017-04-30 06:36] LABS: BUN/CREATININE RATIO 20.2 (10-20); CALCIUM 8.2 mg/dl (8.5-10.1); CREATININE 1.12 mg/dl (0.60-1.40); POTASSIUM 4.7 mmol/L (3.5-5.1)
[2017-04-30 07:29] VITALS: BP 168/95; PULSE 58; TEMP 36.5; O2SAT 96
--- NOTE | 2017-04-30 07:31 | Discharge Instructions ---
Discharge Instructions Date of Service Apr 30, 2017. Admission Reason for Admission: Left Shoulder Prosthetic Joint Loosening Discharge Discharge Diagnosis / Problem: Left Revision Reverse Shoulder Discharge Goals Goal(s): Decrease discomfort, Improve function Activity Recommendations Activity Limitations: as noted below . Instructions / Follow-Up Instructions / Follow-Up Activity and Therapy Recommendations: * Wear your sling for 3 weeks, unless otherwise instructed. You may remove your sling to shower and to dress, but otherwise, you should be in your sling at all times, including while sleeping * The shoulder replacement is very stable and you can use your hand while in the sling * Physical Therapy should start about 3-5 days from your day of surgery. Therapy will last about 8-12 weeks * You were shown a series of exercises in the hospital. Do these exercises daily including the exercises you were shown in physical therapy. Medications: * Narcotic You will likely be sent home from the hospital with a prescription for the narcotic pain medication that worked best throughout your stay. * Other medications may be prescribed for specific circumstances. If you have any questions, please call the office at . * Resume previous home medications unless otherwise instructed Showering: You may shower 5 days from the day of surgery. Let the soapy shower water run over the kemi. Do not scrub or soak the incision. Things To Watch For: * Drainage from the incision site that occurs more than one week after your surgery. * Increased redness at the incision site. * Fever above 102 degrees Fahrenheit. * Unusual chest pain or shortness of breath. * Call [facility] at with any of the above problems Follow-Up Visit: Follow-up with Dr. Solis 2-3 weeks after your day of surgery. An appointment was probably scheduled when you signed-up for surgery in the office. If you have any questions call Office Instructions: More detailed instructions as well as Frequently Asked Questions were provided in a folder by our office when you signed-up for surgery. Please review these instructions when you get home. If you have any further questions or concerns, please feel free to call the office at [phone] Current Hospital Diet Patient's current hospital diet: Regular Diet Discharge Diet Recommended Diet: Regular Diet Procedures Procedures Performed: Left revision (one component), reverse total shoulder arthroplasty Pending Studies Studies pending at discharge: no Laboratory Results Hemoglobin A1c Test 02/10/17 09:30 Range/Units Estimated Average Glucose 123 mg/dl Hemoglobin A1c 5.9 H 4.5-5.6 % Lipid Panel Test 04/25/17 14:10 Range/Units Triglycerides Level 72 0-150 mg/dl Cholesterol Level 110 0-200 mg/dl HDL Cholesterol 46 mg/dl Cholesterol/HDL Ratio 2.4 LDL Cholesterol, Calculated 50 mg/dl Medical Emergencies . Who to Call and When: Medical Emergencies: If at any time you feel your situation is an emergency, please call 911 immediately. . Non-Emergent Contact Non-Emergency issues call your: Surgeon Call Non-Emergent contact if: wound has increased drainage, wound has increased redness . "Provider Documentation" section prepared by Dewayne Solis. . VTE Core Measure Inpt VTE Proph given/why not?: Treatment not indicated
[2017-04-30] MEDS: POTASSIUM CHLORIDE INJ 10 MEQ in SODIUM CHLORIDE 0.9% 1000ML 1,000 ML IV SCH (07:37)
--- NOTE | 2017-04-30 07:53 | OPERATIVE REPORT ---
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 POSTOPERATIVE DIAGNOSIS: Same. PROCEDURE: Left shoulder revision reverse shoulder arthroplasty with poly exchange and reimplantation of the glenosphere. SURGEON: Dr. Dewayne Solis. DROP HAMMER MECHANIC: Stas Long PA-C, whose assistance was necessary for positioning of the arm and helping with instrumentation. ANESTHESIA: General with a left interscalene nerve block. COMPLICATIONS: None. CONDITION: Stable to PACU. INDICATIONS: Joaquin is a pleasant 71-year-old male who is 6 months status post reverse left shoulder arthroplasty. His initial postoperative course was uncomplicated. He did well and regained his range of motion. He was having no pain. Then, he did forced external rotation motion with his left shoulder and he had significant pain and weakness. He called my office. I brought him in immediately for an x-ray. X-ray showed displacement of the glenosphere. He elected to undergo revision reverse shoulder arthroplasty. DESCRIPTION OF PROCEDURE: On 04/29/2017, he arrived at [facility] for the above procedure. He was seen in the preoperative holding area and the operative extremity was identified and signed. He was given a preoperative antibiotic and a left interscalene nerve block. He was taken back to the operating room, laid on the table in supine position and put under general anesthesia. He was then put into the beachchair position. The left shoulder was prepped and draped in sterile fashion. Time-out was done and the patient and operative extremity was properly identified. The deltopectoral approach was opened up once again. Dissection was taken down through the fascia and the deltoid was retracted laterally and the conjoined tendon medially. The subscapularis was tenotomized off the lesser tuberosity with a centimeter of cuff tissue remaining. The glenosphere was easily removed from the joint. I then removed the humeral tray from the humeral head to gain better exposure of the glenoid baseplate. Once I had the baseplate exposed, it was examined extensively. I used a special depth device to make sure the central screw was seated all the way. The device showed that the central screw was not fully seated. A screwdriver was used and an attempt was made to advance the screw further; however, the screw was very tight and had excellent fixation. I could not advance any further. The screw was then backed out. The threads were cleaned and the screw was advanced once again. Once I readvanced the screw, I was able to get an extra fountain pen turner of the screw and seat it fully. The depth gauge device was used again and it confirmed that the screw was fully seated. I believe this to be the reason why I never got a cold weld on the Mabry taper implant. I examined the glenosphere extensively and it appeared to be intact. There did not appear to be any damage. So, I decided to reimplant it. I was able to get an excellent impaction fit and time was spent to ensure that it was fully seated. The proximal humerus was exposed. I looked at the humeral tray and bearing it. It seemed like that the poly had been roughened up through this process. I decided to use a new polyethylene insert. The ring lock mechanism was opened. The new polyethylene insert was added and I saved the humeral tray. The humeral tray was impacted onto the humeral stem. The shoulder was reduced, brought through a full range of motion and felt to be stable. The humeral stem was examined extensively and it was stable and not loose. The surrounding soft tissues were injected with 100 mL of an orthopedic pain control cocktail. The wound was then irrigated with 3 liters of normal saline solution with bacitracin. The subscapularis was then repaired with #2 FiberWire sutures. The shoulder was brought through a full range of motion and felt to be stable. The axillary nerve was palpated. A drain was placed. Skin was closed with 2-0 Vicryl, 3-0 V-Loc suture and kemi. He was placed in a soft dressing and regular arm sling. He was then extubated, transferred to a [facility] and taken to the postanesthesia care unit in stable condition and he tolerated the procedure well. I attest to the content of the Intraoperative Record and any orders documented therein. Any exceptions are noted below. JAMES
--- NOTE | 2017-04-30 07:59 | PROGRESS NOTE ---
DATE: 04/30/2017 CHIEF COMPLAINT: Status post revision left reverse shoulder arthroplasty, postop day #1. PROGRESS: Joaquin was seen and examined at bedside today. Overall, he is doing very well. He is not having any pain in the shoulder. He is happy with his progress and has no complaints. PHYSICAL EXAMINATION: LEFT SHOULDER: The dressing is clean and dry and the drain is to suction. He is wearing a sling as instructed. His radial, median and ulnar nerves were checked and intact at his wrist. His axillary nerve was not checked yet. LABORATORY DATA: He has an H&H this morning of 11.0 and 34.1. His glucose is 128. His vital signs are stable on room air and he is voiding on his own. X-rays postoperatively of the left shoulder show the prosthesis to be in an anatomic alignment without any evidence of fracture, dislocation or loosening. IMPRESSION: Status post revision left reverse shoulder arthroplasty, postop day #1. PLAN: At this point, he is doing very well. He looks to be seen by physical therapy today to do hand, wrist, elbow and pendulum exercises. The nursing staff will change the dressing and pull the drain. We will keep him on oral Tylenol for pain control as he is allergic to any type of narcotics. He will be discharged to home later this morning.
--- NOTE | 2017-04-30 08:07 | DISCHARGE SUMMARY ---
DISCHARGE DIAGNOSIS: Loose implant reverse left shoulder arthroplasty. PROCEDURE: Revision left reverse total shoulder arthroplasty on 04/29/[address] Dewayne Solis. DISCHARGE INSTRUCTIONS: 1. Left arm sling for 3 weeks. 2. May continue cardiac physical therapy while on the sling. 3. Follow up with Dr. Solis in 2 weeks. 4. Call the office of Dr. Solis with any questions or concerns. 5. May shower 5 days from the day of surgery. 6. Tylenol 500 mg as needed for pain. 7. Aspirin 81 mg daily. 8. Lipitor 80 mg at night. 9. CoQ10 200 mg daily. 10. Toprol-XL 50 mg daily. 11. Nitrostat 0.4 mg as needed. HOSPITAL COURSE: Joaquin is a pleasant 71-year-old male who underwent a reverse left shoulder arthroplasty 6 months ago. He then did a forced external rotation and had significant pain and weakness of his shoulder. I brought him right into the office for x-rays that demonstrated a displaced glenosphere component. He elected to undergo revision repair. On 04/29/2017, he arrived at [facility] and underwent a revision left reverse shoulder arthroplasty without complications. He had a general anesthetic and a left interscalene nerve block. Postoperatively, he was discharged to general orthopedic floor. His hospital course was uneventful. On postop day #1, his H&H was stable at 11.0 and 34.1. His vital signs were all stable on room air. He was able to work well with physical therapy, doing hand, wrist, elbow and pendulum exercises. The nursing staff changed the dressing, pulled the drain, and he was subsequently discharged to home with the above instructions.
[2017-04-30] MEDS ORDERED: MULTIVITAMIN TAB PO SCH (09:00)
[2017-04-30] MEDS ORDERED: METOPROLOL SUCC 50MG EXT REL TAB PO SCH (09:00)
[2017-04-30] MEDS ORDERED: COENZYME Q10 PO SCH (09:00)
[2017-04-30] MEDS ORDERED: PANTOprazole SOD 40 MG TAB PO SCH (09:00)
[2017-04-30] MEDS ORDERED: ASPIRIN 81 MG ECTAB PO SCH (09:00)
[2017-04-30 09:28] VITALS: BP 168/95; PULSE 58; TEMP 36.5; O2SAT 96
[2017-04-30] MEDS: DOCUSATE SODIUM 100 MG CAP PO SCH (09:55)
== END 2017-04-30 11:39 | disposition home or self-care (01) | DRG 516 ==
LOC: C.ACU 06:25 → C.3E 08:06 → ENRESERV 10:44
PROVIDERS: ADMIT Orthopaedic Surgery; ATTEND Orthopaedic Surgery
PROC: 0RWK0JZ Revision of Synthetic Substitute in Left Shoulder Joint, Open Approach (ICD-10-PCS; principal; 2017-04-29 08:45)
DX: T84.038A Mechanical loosening of other internal prosthetic joint, initial encounter (principal); I20.0 Unstable angina; Z96.612 Presence of left artificial shoulder joint; Y83.1 Surgical operation with implant of artificial internal device as the cause of abnormal reaction of the patient, or of later complication, without mention of misadventure at the time of the procedure; Y79.2 Prosthetic and other implants, materials and accessory orthopedic devices associated with adverse incidents; Z79.82 Long term (current) use of aspirin; Z79.899 Other long term (current) drug therapy

== ENCOUNTER → 2018-02-18 | Outpatient (CLI) | payer BC ==
[~2018-02-18] MED LIST changes: -ACETAMINOPHEN 500 MG TAB PO SCH; -CEFAZOLIN 2000MG IV PUSH 10 ML IV SCH; -DOXY100C76 PO; -LACTATED RINGER'S 1000ML 1,000 ML IV SCH; -LACTATED RINGER'S 1000ML IV SCH; +METO100T14 PO; -METO50TA7 PO; -ROPIVACAINE 5MG/ML 30 ML 150 MG, BUPIVACAINE 0.5% MPF INJ 30 ML, EpINEphrine HCL INJ 0.... INFIL SCH
[2018-02-18 09:11] LABS: ALBUMIN 3.7 gm/dl (3.4-5.0); ALKALINE PHOSPHATASE 83 U/L (45-117); ALT/SGPT 41 U/L (12-78); AST/SGOT 32 U/L (15-37); BLOOD UREA NITROGEN 21 mg/dl (7-18); CALCIUM 8.5 mg/dl (8.5-10.1); CARBON DIOXIDE 27 mmol/L (21-32); CHOLESTEROL 115 mg/dl (0-200); CREATININE 1.18 mg/dl (0.60-1.40); GLUCOSE 110 mg/dl (70-99); LDL CHOLESTEROL (DIRECT) 69 mg/dl; POTASSIUM 4.7 mmol/L (3.5-5.1); SODIUM 141 mmol/L (136-145); TOTAL PROTEIN 7.1 gm/dl (6.4-8.2)
== END | disposition home or self-care (01) ==
LOC: C.LAB 08:19
PROVIDERS: ATTEND Internal Medicine
DX: R73.9 Hyperglycemia, unspecified (principal); I25.10 Atherosclerotic heart disease of native coronary artery without angina pectoris; E78.5 Hyperlipidemia, unspecified; I10 Essential (primary) hypertension